=== PATIENT | female | born 1995 | race Caucasian/White ===

== ENCOUNTER → 2024-05-19 16:41 | Outpatient (CLI) | payer OTHER, SELFPAY ==
[2024-05-19 18:13] LABS: HCG Quantitative /Beta subunit 15191 mIU/mL
== END ==
PROVIDERS: Referring Provider Obstetrics & Gynecology; Visit Provider Obstetrics & Gynecology
DX: Z34.00 Encounter for supervision of normal first pregnancy, unspecified trimester (principal); N91.2 Amenorrhea, unspecified
CPT/HCPCS: 36415; 84702

== ENCOUNTER → 2024-06-02 08:37 | Outpatient (CLI) | payer OTHER, SELFPAY ==
[2024-06-02 15:05] LABS: Urine N gonorrhoeae NOT DETECTED
[2024-06-02 15:11] LABS: Urine Chlamydia NOT DETECTED
== END ==
PROVIDERS: Visit Provider Obstetrics & Gynecology
DX: Z34.01 Encounter for supervision of normal first pregnancy, first trimester (principal); Z3A.08 8 weeks gestation of pregnancy
CPT/HCPCS: 87491; 87591

== ENCOUNTER → 2024-06-15 15:13 | Outpatient (CLI) | payer OTHER, SELFPAY ==
[2024-06-15 16:34] LABS: Natera Collection Specimen Collected
[2024-06-15 16:49] LABS: Add Manual Diff / Slide Review NO; Basophils Absolute Auto 0 /uL (0-100); Basophils Percent Auto 0.3 % (0-2); Eosinophils Absolute Auto 0 /uL (0-450); Eosinophils Percent Auto 0.4 % (2-4); Hematocrit 40.5 % (36-46); Hemoglobin 13.6 g/dL (12.0-16.0); Lymphocytes Absolute Auto 1300 /uL (1100-4500); Lymphocytes Percent Auto 13.6 % (25-40); Mean Corpuscular HGB Conc 33.6 % (30-36); Mean Corpuscular Hemoglobin 29.7 PG (26-34); Mean Corpuscular Volume 88.6 fL (80-100); Monocytes Absolute Auto 600 /uL (0-900); Monocytes Percent Auto 5.8 % (3-14); Neutrophils Absolute Auto 7600 /uL (1500-7000); Neutrophils Percent Auto 79.9 % (50-75); Platelet Count 235 X10^3/uL (150-400); Red Blood Cell Count 4.58 X10^6/uL (4.0-5.2); White Blood Cell Count 9.5 X10^3/uL (4.5-11.0)
[2024-06-15 17:56] LABS: Rubella Antibody IgG 36.9 IU/mL (>15)
[2024-06-15 17:59] LABS: HCG Quantitative /Beta subunit 74763 mIU/mL
[2024-06-15 18:05] LABS: Hepatitis B Surface Antigen NEGATIVE s/c (NEGATIVE)
[2024-06-15 18:13] LABS: HIV 1 & 2 Ab/Ag 4th Gen Combo NEGATIVE (NEGATIVE)
[2024-06-15 18:21] LABS: Hep C Virus Ab w/Reflex Quant NEGATIVE s/c (NEGATIVE)
[2024-06-16 08:08] LABS: RPR Screen Non Reactive (Non Reactive)
[2024-06-16 13:11] LABS: Varicella IgG Antibody Reactive (Non Reactive)
== END ==
LOC: LAB 15:14
PROVIDERS: Referring Provider Obstetrics & Gynecology; Visit Provider Obstetrics & Gynecology
DX: Z34.01 Encounter for supervision of normal first pregnancy, first trimester (principal); N91.2 Amenorrhea, unspecified; Z3A.10 10 weeks gestation of pregnancy
CPT/HCPCS: 80055; 84702; 86787; 86803; 86850; 86900; 86901; 87086; 87389

== ENCOUNTER → 2024-06-18 13:17 | Outpatient (CLI) | payer OTHER, SELFPAY ==
[2024-06-18 14:28] LABS: Appearance Urine UA CLEAR; Bilirubin Urine UA NEGATIVE (NEGATIVE); Color Urine UA YELLOW; Glucose Urine UA NEGATIVE (Negative); Ketones Urine UA NEGATIVE (NEGATIVE); Leukocyte Esterase Urine UA NEGATIVE (NEGATIVE); Nitrite Urine UA NEGATIVE (Negative); Occult Blood Urine UA NEGATIVE (Negative); Protein Urine UA NEGATIVE (Negative); Urobilinogen Urine UA 0.2 E.U./dL (0.2)
[2024-06-18 14:30] LABS: pH Urine UA 6.5 (4.5-8.0)
[2024-06-18 14:48] LABS: Bacteria Urine Few (2-10); RBC Urine None Seen (0-5/HPF); Squamous Epithelial Cell Urine 1-5 /HPF (0-5/HPF); Urine Volume 10mL (spun); WBC Urine None Seen (0-5/HPF)
[2024-06-18 14:49] LABS: Culture Indicated Urine Cult Not Indicated
== END ==
PROVIDERS: Referring Provider Obstetrics & Gynecology; Visit Provider Obstetrics & Gynecology
DX: Z34.00 Encounter for supervision of normal first pregnancy, unspecified trimester (principal); R30.0 Dysuria
CPT/HCPCS: 81001

== ENCOUNTER → 2024-08-24 14:57 | Outpatient (CLI) | payer OTHER, SELFPAY ==
--- NOTE | 2024-08-24 14:58 | DI.US.S_ITS ---
PROCEDURE: US OB >= 14 WEEKS FETUS INDICATIONS: 20 week anatomy OUTSIDE/PRIOR DATING DATA: Last menstrual period (LMP): 04/06/24. LMP-based estimated date of delivery (JONATHON): 01/11/25. First dating scan (date and location): 06/02/24. Estimated date of delivery (JONATHON) from first dating scan: 01/12/25. The calculations are made using the working JONATHON of 01/11/25. TECHNIQUE: Real-time scanning was performed of the fetus, with image documentation and biometric measurements. Endovaginal scanning: Not performed COMPARISON: None. FINDINGS: General: A single living intrauterine gestation is present. Presentation: Breech. Placenta: Placental position is posterior , without previa. Amniotic fluid index: 19.9 cm, normal range is 5-24 cm. Single deepest vertical pocket is 6.8 cm. heart rate: 143 beats per minute. Maternal cervical canal: Closed and 3.6 cm long. Normal lower limit is 2.5 cm. biometrics: Biparietal diameter: 4.8 cm, 20 weeks three days Head circumference: 18.0 cm, 20 weeks three days Abdominal circumference: 16.7 cm, 21 weeks five days Femur length: 3.6 cm, 21 weeks two days Clinically estimated gestational age: 20 weeks 0 days Composite gestational age from present scan: 21 weeks 0 days Estimated weight and percentile: 416 g, 98th percentile Anatomic survey: Neuro: Ventricles are non-dilated at less than 10 mm. Cisterna magna is normal at 3-11 mm. Cerebellum is normal in size and morphology. Nuchal skin fold: Normal at less than 6 mm between 14-21 weeks gestational age. Face: Nose and lips, facial profile are normal. Spine: Not well seen Heart: 4-chambered heart is present, with normal ventricular outflow tracts. Diaphragm: Diaphragm is intact. Stomach: Left-sided stomach is present. Kidneys: No hydronephrosis. Normal is less than 5 mm in 2nd trimester, less than 7 mm in 3rd trimester. Cord: 3-vessel cord has orthotopic insertion. Placental cord insertion was not well seen. Bladder: Normal in size. Extremities: All 4 extremities identified. IMPRESSION: Single living intrauterine with estimated weight at the 98th percentile. Composite gestational age is seven days greater than the working gestational age. Due to lie, sagittal views the spine were not well seen. Placental cord insertion was also not seen. Follow-up is recommended. Otherwise normal anatomy. Closed cervix and normal amniotic fluid volume. Posterior placenta. We strive to produce accurate, complete, and clear reports of imaging services. To assist us in improving patient care, this report was composed using standard report templates and voice recognition software. Therefore, it may contain abnormal punctuation, insertions and/or omissions. Occasional wrong-word or sound-alike substitutions may occur. Though we review the report and make efforts to correct it, we do recommend that the report be read carefully in proper context to recognize any text inaccuracies. Dictated by: Debra Lehman M.D. on 08/25/2024 at 11:02 Approved by: Debra Lehman M.D. on 08/25/2024 at 11:06
== END ==
PROVIDERS: Referring Provider Obstetrics & Gynecology; Visit Provider Obstetrics & Gynecology
DX: Z34.02 Encounter for supervision of normal first pregnancy, second trimester (principal); Z3A.21 21 weeks gestation of pregnancy
CPT/HCPCS: 76811

== ENCOUNTER → 2024-08-28 08:19 | Outpatient (CLI) | payer OTHER, SELFPAY | PROVIDERS: Referring Provider Obstetrics & Gynecology; Visit Provider Obstetrics & Gynecology | DX: Z34.00 Encounter for supervision of normal first pregnancy, unspecified trimester (principal); Z3A.16 16 weeks gestation of pregnancy | CPT/HCPCS: 36415; 82105 ==

== ENCOUNTER → 2024-09-28 06:59 | Outpatient (CLI) | payer OTHER, SELFPAY ==
[2024-09-28 08:35] LABS: Hematocrit 35.8 % (36-46); Hemoglobin 12.4 g/dL (12.0-16.0)
[2024-09-28 08:49] LABS: GTT (PREG) 1 Hour PP 50gm Dose 97 mg/dL (76-139)
== END ==
PROVIDERS: Referring Provider Obstetrics & Gynecology; Visit Provider Obstetrics & Gynecology
DX: Z34.02 Encounter for supervision of normal first pregnancy, second trimester (principal); Z3A.26 26 weeks gestation of pregnancy
CPT/HCPCS: 36415; 82950; 85014; 85018

== ENCOUNTER 2024-10-21 13:25 | Observation (INO) | payer OTHER, SELFPAY ==
[2024-10-21 14:22] LABS: Add Manual Diff / Slide Review NO; Basophils Absolute Auto 0 /uL (0-100); Basophils Percent Auto 0.4 % (0-2); Eosinophils Absolute Auto 100 /uL (0-450); Eosinophils Percent Auto 0.5 % (2-4); Hematocrit 35.8 % (36-46); Lymphocytes Absolute Auto 1200 /uL (1100-4500); Lymphocytes Percent Auto 10.7 % (25-40); Mean Corpuscular HGB Conc 33.5 % (30-36); Mean Corpuscular Hemoglobin 30.5 PG (26-34); Mean Corpuscular Volume 91.1 fL (80-100); Monocytes Absolute Auto 800 /uL (0-900); Monocytes Percent Auto 7.4 % (3-14); Neutrophils Absolute Auto 9200 /uL (1500-7000); Platelet Count 206 X10^3/uL (150-400); Red Blood Cell Count 3.93 X10^6/uL (4.0-5.2); Red Cell Distribution Width 12.4 % (11.6-14.8); White Blood Cell Count 11.3 X10^3/uL (4.5-11.0)
[2024-10-21 14:35] LABS: Alanine Aminotransferase 76 IU/L (<35); Albumin 3.8 g/dL (3.5-5.0); Albumin Globulin Ratio 1.3 (1.0-2.8); Alkaline Phosphatase 91 U/L (38-126); Aspartate Aminotransferase 43 IU/L (14-36); BUN Creatinine Ratio 12.7 (6-22); Bilirubin Total 0.3 mg/dL (0.2-1.3); Blood Urea Nitrogen 8 mg/dL (7-17); Calcium 8.9 mg/dL (8.4-10.2); Carbon Dioxide 23 mmol/L (22-32); Chloride 105 mmol/L (98-107); Estimated Glomerular Filt Rate > 60 mL/min (>60); Glucose 76 mg/dL (70-99); HEMOLYSIS < 15 (0-50); Potassium 4.1 mmol/L (3.4-5.1); Sodium 134 mmol/L (137-145); Total Protein 6.8 g/dL (6.3-8.2); Uric Acid 3.5 mg/dL (2.5-6.2)
[2024-10-21 15:14] LABS: Creatinine Urine Random 51.61 mg/dL
[2024-10-21 15:28] LABS: Protein (Total) Urine Random 13 mg/dL (0-12); Protein Creatinine Ratio Urine 0.25 GRAM/24H
--- NOTE | 2024-10-21 16:30 | P.TNLD_ITS ---
Visit Information Visit Information Date of evaluation: 10/21/24 Primary OB Provider: Eliane Malhotra On-call OB Provider: Eliane Malhotra Reason for Evaluation: Yes non-stress test and Yes other Comments/Additional reasons for admission: new malaise, fatigue, elevated BP at home [facility] Medical History (Updated 01/11/25 @ 13:34 by Nelli Dennison DO) depression exam Pre-eclampsia in third trimester Foot fracture (~2017) Surgical History (Updated 05/13/24 @ 10:37 by Melva Wong RN) [place] teeth removed (07/18/16) Anesthesia History of Achilles tendon repair (~2014) Family History (Updated 05/13/24 @ 10:43 by Melva Wong RN) Father Age: 63 Diabetes mellitus Hypertension Mother Age: 60 Mental health problem Brother Mental health problem Cystic fibrosis Substance abuse Sister Age: 32 Pre-eclampsia, severe hemorrhage Family/Other Pneumothorax, spontaneous, tension Cerebral palsy Prematurity Family/Other HIDS (hyperimmunoglobulinemia D with recurrent fever syndrome) Monoallelic mutation of MVK gene Grandmother Diabetes mellitus Von Willebrand disease Social History marital status: number of children: 0 household members: spouse and children lives independently: Yes caregiver/support person: No housing: house pets and animals: Yes (dog) education level: college occupational status: employed current occupational exposures/hazards: No special jose elias needs: No travel history: recent seatbelt use: always helmet use: Yes working smoke detector in home: Yes fire extinguisher in home: Yes carbon monox detector in home: Yes firearms in home: Yes firearms unloaded and locked: Yes do you feel safe at home: Yes second hand exposure: No alcohol intake: former substance use type: does not use during the past year weight has: increased > 10 lbs well-balanced diet: daily or most days daily servings fruits/ve or more times/day caffeine: Yes (aware of 200mg limit; previously 400+mg/day prior to ) Type(s) of exercise: aerobic, bicycling, swimming and weight lifting frequency: daily additional social history: 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 Discussed general exercise recommendations in , travel precautions. Pt does have several trips planned in the next few months, including [place] and , travel recommendations reviewed including compression socks, frequent ambulation, LDASA after 12 wk. Exam Vital Signs (past 8 hours): maternal VSS/afebrile, normotensive without mild or severe range BP; reviewed in OBIX Objective Labs 10/21/24 13:50 10/21/24 13:50 Labs: Laboratory Results - last 24 hr 10/21/24 10/21/24 13:30 13:50 WBC 11.3 H RBC 3.93 L Hgb 12.0 Hct 35.8 L MCV 91.1 MCH 30.5 MCHC 33.5 RDW 12.4 Plt Count 206 Neut % (Auto) 81.0 H Lymph % (Auto) 10.7 L [place] % (Auto) 7.4 Eos % (Auto) 0.5 L Baso % (Auto) 0.4 Neut # (Auto) 9200 H Lymph # (Auto) 1200 [place] # (Auto) 800 Eos # (Auto) 100 Baso # (Auto) 0 Sodium 134 L Potassium 4.1 Chloride 105 Carbon Dioxide 23 BUN 8 Creatinine 0.63 Estimated GFR > 60 BUN/Creatinine Ratio 12.7 Glucose 76 Uric Acid 3.5 Calcium 8.9 Total Bilirubin 0.3 AST 43 H ALT 76 H Alkaline Phosphatase 91 Total Protein 6.8 Albumin 3.8 Globulin 3.0 Albumin/Globulin Ratio 1.3 U Random Total Protein 13 H Urine Creatinine 51.61 Protein/Creatinin Ratio 0.25 Evaluation Evaluation Baseline heart rate: 140 Variability: Moderate (11-25) monitor accelerations: Present Monitor Decelerations: Absent Category of Tracing: Reactive Status: Category l Diagnosis, Plan/Disposition Plan/Disposition Plan: normotensive, mild elevation in LFTs without additional lab abnormality strict precautions plan interval NST/labs one week unless sooner indication OB Disposition: home
== END 2024-10-21 16:30 | disposition home or self-care (01) ==
PROVIDERS: Admitting Provider Obstetrics & Gynecology; Referring Provider Obstetrics & Gynecology; Visit Provider Obstetrics & Gynecology
DX: Z36.9 Encounter for antenatal screening, unspecified (principal)
CPT/HCPCS: 36415; 59025; 80053; 84550; 85025; G0378; G0379

== ENCOUNTER 2024-10-22 18:40 | Observation (INO) | payer OTHER, SELFPAY ==
[2024-10-22 19:52] LABS: Add Manual Diff / Slide Review NO; Basophils Absolute Auto 0 /uL (0-100); Basophils Percent Auto 0.4 % (0-2); Eosinophils Absolute Auto 0 /uL (0-450); Eosinophils Percent Auto 0.4 % (2-4); Hematocrit 35.4 % (36-46); Lymphocytes Absolute Auto 1500 /uL (1100-4500); Lymphocytes Percent Auto 13.7 % (25-40); Mean Corpuscular HGB Conc 33.9 % (30-36); Mean Corpuscular Hemoglobin 30.8 PG (26-34); Mean Corpuscular Volume 90.9 fL (80-100); Monocytes Absolute Auto 800 /uL (0-900); Monocytes Percent Auto 7.3 % (3-14); Neutrophils Absolute Auto 8600 /uL (1500-7000); Neutrophils Percent Auto 78.2 % (50-75); Platelet Count 198 X10^3/uL (150-400); Red Cell Distribution Width 12.5 % (11.6-14.8); White Blood Cell Count 10.9 X10^3/uL (4.5-11.0)
[2024-10-22 19:58] LABS: Alanine Aminotransferase 63 IU/L (<35); Albumin 3.6 g/dL (3.5-5.0); Albumin Globulin Ratio 1.3 (1.0-2.8); Alkaline Phosphatase 82 U/L (38-126); Aspartate Aminotransferase 36 IU/L (14-36); BUN Creatinine Ratio 12.5 (6-22); Bilirubin Total 0.1 mg/dL (0.2-1.3); Blood Urea Nitrogen 7 mg/dL (7-17); Calcium 8.6 mg/dL (8.4-10.2); Carbon Dioxide 24 mmol/L (22-32); Chloride 105 mmol/L (98-107); Estimated Glomerular Filt Rate > 60 mL/min (>60); Globulin 2.8 g/dL (1.7-4.1); Glucose 92 mg/dL (70-99); HEMOLYSIS < 15 (0-50); Potassium 3.6 mmol/L (3.4-5.1); Sodium 135 mmol/L (137-145); Total Protein 6.4 g/dL (6.3-8.2); Uric Acid 3.1 mg/dL (2.5-6.2)
[2024-10-22 20:29] LABS: Creatinine Urine Random 21.77 mg/dL; Protein (Total) Urine Random 13 mg/dL (0-12); Protein Creatinine Ratio Urine 0.59 GRAM/24H
--- NOTE | 2024-10-22 21:19 | P.HPOB_ITS ---
OB HPI Date/Time Date of admission: 10/22/24 Date Patient Seen: 10/22/24 Time Patient Seen: 21:20 History of Present Condition Chief complaint: blood pressure issues JONATHON Calculator 2 Estimated Delivery Date Method Current WG Current Estimate 01/11/25 LMP (Certain) 28w 3d Other Estimates 01/12/25 Ultrasound #1 28w 2d Estimated Gestational Age (weeks): 28w3d : 1 Narrative: 29 yo G1 presenting with vision changes, BENITES, nausea, elevated BPs and general malaise. She was seen yesterday in triage for similar symptoms and evaluation showed elevated LFTs but normal urine P:C ratio. Blood pressures were normal to mild range at that time and she was discharged home with plans for close follow- up. Today she is felt that symptoms have worsened and has now developed orbs of visual disturbances. She is also more nauseous. Blood pressures at home have been ranging from low 100s to 130s systolic. On arrival, blood pressures in 130/80 range. Preeclampsia labs ordered. Labs showed improvement in LFT elevations (nml AST with elevated but improved ALT) but new development of elevated urine protein creatinine ratio now up to 0.59 up from 0.25 yesterday evening. Platelets are essentially stable from labs yesterday. Creatinine is also stable from yesterday. Patient is still feeling a mild nagging headache and is still experiencing visual changes. Nausea still present but manageable. Overall she is feeling generally unwell and uncomfortable. On evaluation, blood pressures ranging from 103-135 / 54-80 while awaiting labs. care: good care Dating criteria OB: LMP confirmed by 1st trimester US Preadmission Labs Last OB Lab Results: 2 Blood Type B Positive 06/15/24 15:34 Antibody Screen Negative 06/15/24 15:34 Hct 35.4 % (36-46) L 10/22/24 19:17 Hgb 12.0 g/dL (12.0-16.0) 10/22/24 19:17 Hep Bs Antigen Negative s/c (NEGATIVE) 06/15/24 15:34 Hepatitis C Antibody Negative s/c (NEGATIVE) 06/15/24 15:34 Rubella Antibody 36.9 IU/mL (>15) 06/15/24 15:34 VZV IgG Antibody Reactive (Non Reactive) 06/15/24 15:34 Glucose 1 Hr 50 gm 97 mg/dL (76-139) 09/28/24 08:22 Evaluation Evaluation Baseline heart rate: 135 Variability: Moderate (11-25) monitor accelerations: Present Monitor Decelerations: Absent Contraction Frequency (minutes): 0 Category of Tracing: Reactive PFSH Medical History (Updated 05/13/24 @ 10:37 by Melva Wong RN) Foot fracture (~2017) Surgical History (Updated 05/13/24 @ 10:37 by Melva Wong RN) [place] teeth removed (07/18/16) Anesthesia History of Achilles tendon repair (~2014) Family History (Updated 05/13/24 @ 10:43 by Melva Wong RN) Father Age: 62 Diabetes mellitus Hypertension Mother Age: 60 Mental health problem Brother Mental health problem Cystic fibrosis Substance abuse Sister Age: 31 Pre-eclampsia, severe hemorrhage Family/Other Pneumothorax, spontaneous, tension Cerebral palsy Prematurity Family/Other HIDS (hyperimmunoglobulinemia D with recurrent fever syndrome) Monoallelic mutation of MVK gene Grandmother Diabetes mellitus Von Willebrand disease Social History marital status: number of children: 0 household members: spouse lives independently: Yes caregiver/support person: No housing: house pets and animals: Yes (dog) education level: college (bachelor's degree) occupational status: employed () current occupational exposures/hazards: No special jose elias needs: No travel history: recent (, [place]) seatbelt use: always helmet use: Yes working smoke detector in home: Yes fire extinguisher in home: Yes carbon monox detector in home: Yes firearms in home: Yes firearms unloaded and locked: Yes do you feel safe at home: Yes second hand exposure: No alcohol intake: former (very rarely when not ) substance use type: does not use during the past year weight has: increased > 10 lbs (muscle weight, very physically active) well-balanced diet: daily or most days daily servings fruits/ve or more times/day caffeine: Yes (aware of 200mg limit; previously 400+mg/day prior to ) Type(s) of exercise: aerobic, bicycling, swimming and weight lifting frequency: daily additional social history: 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 Discussed general exercise recommendations in , travel precautions. Pt does have several trips planned in the next few months, including [place] and [place], travel recommendations reviewed including compression socks, frequent ambulation, LDASA after 12 wk. Meds Home Medications and Allergies Home Medications Medication Instructions Recorded Confirmed Type vitamin-ferrous sulfate See Rx Instructions .Route .COMPLEX 05/13/24 10/21/24 History 27 mg iron-folic acid 0.8 mg tablet doxylamine succinate 25 mg tablet 25 mg PO BEDTIME PRN md order 06/02/24 10/21/24 History (Unisom (doxylamine)) pyridoxine (vitamin B6) 100 mg 100 mg PO DAILY 06/02/24 10/21/24 History tablet Allergies Allergy/AdvReac Type Severity Reaction Status Date / Time Penicillins Allergy Mild Rash Verified 09/25/24 14:46 OB Exam Vital signs Blood Pressure: 122/68 Pulse Rate: 83 Temperature: 97.7 F Narrative Exam Narrative: Blood pressure from arrival: 133/82, 136/80, 133/81, 122/68, 119/65, 121/69, 103/54, 145/82 GEN: Healthy appearing, well-developed, NAD. PSYCH: Good Judgment. AOx3. Normal memory, mood, and affect HEENT: -Head: NC/AT -Eyes: No discharge or redness CV: warm and well perfused LUNGS: breathing comfortably on RA ABD: gravid SKIN: Warm, well perfused. No skin rashes or abnormal lesions MSK: No deformities NEURO: Ambulating with no limitations. No focal deficits Objective Labs 10/22/24 19:17 10/22/24 19:17 Labs: Laboratory Results - last 24 hr 10/22/24 19:17 WBC 10.9 RBC 3.90 L Hgb 12.0 Hct 35.4 L MCV 90.9 MCH 30.8 MCHC 33.9 RDW 12.5 Plt Count 198 Neut % (Auto) 78.2 H Lymph % (Auto) 13.7 L [place] % (Auto) 7.3 Eos % (Auto) 0.4 L Baso % (Auto) 0.4 Neut # (Auto) 8600 H Lymph # (Auto) 1500 [place] # (Auto) 800 Eos # (Auto) 0 Baso # (Auto) 0 Sodium 135 L Potassium 3.6 Chloride 105 Carbon Dioxide 24 BUN 7 Creatinine 0.56 Estimated GFR > 60 BUN/Creatinine Ratio 12.5 Glucose 92 Uric Acid 3.1 Calcium 8.6 Total Bilirubin 0.1 L AST 36 ALT 63 H Alkaline Phosphatase 82 Total Protein 6.4 Albumin 3.6 Globulin 2.8 Albumin/Globulin Ratio 1.3 U Random Total Protein 13 H Urine Creatinine 21.77 Protein/Creatinin Ratio 0.59 Assessment and Plan Assessment and Plan Assessment and Plan narrative: 29 yo G1 presenting with vision changes, BENITES, nausea, elevated BPs and general malaise. ON arrival Urine PC found to be elevated to 0.59 up from 0.25 yesterday evening. Bps mostly normotensive but with one recent read in 140s/80 range. # elevated urine PC, concern for Pre-E: - [facility], observation - 24 hour urine protein collection - BP q2hr when normotensive, q15min when elevated - IV labetolol available for severe range BPs - NST q4hrs - If Bps consistently elevated overnight, will start antihypertensives in the AM - PRN Zofran for nausea - PRN vistaril for insomnia/anxiety - Repeat CMP and CBC in the AM Time-Based Coding :: [TOTAL MINUTES] spent with patient and on the chart (including review of chart, obtaining history, exam, reviewing outside data, placing orders, documenting exam and treatment plan, and counseling patient) on [DATE].
[2024-10-22 21:36] VITALS: BP 122/68; PULSE 83; TEMP 36.5
[2024-10-23] MEDS: ONDANSETRON 4 MG ODT SL (03:40)
--- NOTE | 2024-10-23 08:00 | P.DS_ITS ---
Discharge Providers Provider Date of admission: 10/22/24 18:40 Discharge Date: 10/23/24 Primary care physician: Yodit VILA Provider Discharge provider: Eliane Malhotra MD Summary Hospital Course Date Patient Seen: 10/23/24 Time Patient Seen: 07:30 Diagnoses: antepartum observation for labile blood pressure at 28wga, proteinuria Hospital Course: 29yo G1 at 28w4d admitted for overnight observation in setting of non-sustained mild range BP, BENITES with associated vision changes. Patient had been seen and evaluated in [facility] earlier this week for concerns of elevated BP at home (140s/80s) with associated BENITES and RUQ discomfort. First PIH labs 10/21 without thrombocytopenia, mild transaminitis (AST 43/ALT 76), Pr/Cr 0.25. Patient was discharged to home from this initial encounter with strict precautions and planned short interval f/u in office. Patient secondarily developed recurrent BENITES with associated vision changes, called MD on-call and was instructed to present for further evaluation. Current observation period notable for non-sustained mild range BP (initially 140s/80s on arrival, normotensive throughout overnight observation), repeat PIH labs with interval improvement in transaminitis (AST 36/63), mild decrease in platelets (206 --> 198k) however doubling of Pr/Cr to 0.56. A 24h urine collection was started and patient admitted for overnight observation. Patient remained normotensive throughout observation period with noted improvement in BENITES and vision changes. In shared decision making model to facilitate patient sleep patient discharged to home this AM with planned re-start of 24h urine collection, return to facility AM 10/24 for interval NST with PIH labs and further care coordination at that time pending results of same. Strict interval precautions reviewed and patient in agreement with plan of care. REassuring surveillance throughout observation. Status at Discharge Cognitive/behavioral status at discharge: oriented Functional status at discharge: independent ambulation Overall status at discharge: patient is back to baseline Time Spent with Patient Time attestation: Total time spent providing and/or coordinating discharge services: Objective Labs 10/22/24 19:17 10/22/24 19:17 Labs: Laboratory Results - last 24 hr 10/22/24 19:17 WBC 10.9 RBC 3.90 L Hgb 12.0 Hct 35.4 L MCV 90.9 MCH 30.8 MCHC 33.9 RDW 12.5 Plt Count 198 Neut % (Auto) 78.2 H Lymph % (Auto) 13.7 L [place] % (Auto) 7.3 Eos % (Auto) 0.4 L Baso % (Auto) 0.4 Neut # (Auto) 8600 H Lymph # (Auto) 1500 [place] # (Auto) 800 Eos # (Auto) 0 Baso # (Auto) 0 Sodium 135 L Potassium 3.6 Chloride 105 Carbon Dioxide 24 BUN 7 Creatinine 0.56 Estimated GFR > 60 BUN/Creatinine Ratio 12.5 Glucose 92 Uric Acid 3.1 Calcium 8.6 Total Bilirubin 0.1 L AST 36 ALT 63 H Alkaline Phosphatase 82 Total Protein 6.4 Albumin 3.6 Globulin 2.8 Albumin/Globulin Ratio 1.3 U Random Total Protein 13 H Urine Creatinine 21.77 Protein/Creatinin Ratio 0.59 Exam Vital Signs (past 8 hours): BP 116-141/68-77 afebrile, non-tachycardic see OBIX Const General: cooperative, healthy appearing, comfortable and well developed Nutritional Appearance: average body habitus Orientation: alert, awake and oriented x3 Limitations: mental status not altered HENMT Head: normal to inspection and other (no facial plethora ) Resp Effort & Inspection: normal respiratory effort and able to speak in complete sentences Auscultation: clear to auscultation bilaterally Cardio Pulses: normal peripheral pulses GI Palpation: soft Other: gravid, size c/w dates Other: deferred Skin General: no rashes or lesions noted Neuro General: patient alert, patient awake and patient oriented x3 Other: +2 DTR Extrem General: normal to inspection, no pedal edema and no calf tenderness Psych Mental Status: mental status grossly normal Judgment: judgment good Discharge Plan Discharge Plan Patient Disposition: Home Provider Discharge Comment: Notify provider with any worsening headache, vision changes, abdominal pain, vaginal bleeding, decrease in movement, cramping/contractions Discharge orders & Medications Prescriptions: Continued Unisom (doxylamine) 25 mg tablet 25 mg PO BEDTIME PRN (Reason: md order) pyridoxine (vitamin B6) 100 mg tablet 100 mg PO DAILY vit-ferrous sulfat-FA 27 mg iron- 0.8 mg tablet See Rx Instructions .ROUTE .COMPLEX Rx Instructions: per MD order Follow up/Referrals: ProviderYodit [Primary Care Provider] - Diet/Activity/Treatments Diet: Diet as Tolerated and Regular Skin/Wound/Dressing Care Report to your healthcare provider any signs of infection, such as:: increased pain Visit Report/Discharge Packet Stand Alone Forms: Patient Portal/API, Stroke Signs & Symptoms Discharge Data Primary Care Provider: Yodit Ascencio Attending Provider: Bella Perdomo Admit Date/Time: 10/22/24 18:40
[2024-10-23] MEDS: FAMOTIDINE 20 MG TABLET PO (08:29)
[2024-10-24 12:49] LABS: Collection Time Urine 24 Hours; Protein (Total) Urine Random 13 mg/dL (0-12); Total Protein 24 Hour Urine 416 mg/day (42-225); Total Volume Urine 3200 mL
== END 2024-10-23 08:32 | disposition home or self-care (01) ==
PROVIDERS: Admitting Provider Family Medicine; Referring Provider Family Medicine; Visit Provider Family Medicine
DX: Z36.9 Encounter for antenatal screening, unspecified (principal)
CPT/HCPCS: 59025; 59050; 80053; 84156; 84550; 85025; G0378; A9270; G0379

== ENCOUNTER 2024-10-24 09:35 | Observation (INO) | payer OTHER, SELFPAY ==
[2024-10-24 10:57] LABS: Add Manual Diff / Slide Review NO; Basophils Absolute Auto 0 /uL (0-100); Basophils Percent Auto 0.3 % (0-2); Eosinophils Absolute Auto 0 /uL (0-450); Eosinophils Percent Auto 0.3 % (2-4); Hemoglobin 12.1 g/dL (12.0-16.0); Lymphocytes Absolute Auto 1100 /uL (1100-4500); Lymphocytes Percent Auto 9.4 % (25-40); Mean Corpuscular HGB Conc 34.6 % (30-36); Mean Corpuscular Hemoglobin 31.1 PG (26-34); Mean Corpuscular Volume 89.9 fL (80-100); Monocytes Absolute Auto 600 /uL (0-900); Monocytes Percent Auto 5.2 % (3-14); Neutrophils Absolute Auto 10200 /uL (1500-7000); Neutrophils Percent Auto 84.8 % (50-75); Platelet Count 195 X10^3/uL (150-400); Red Cell Distribution Width 12.5 % (11.6-14.8)
[2024-10-24 11:17] LABS: Alanine Aminotransferase 51 IU/L (<35); Albumin 3.6 g/dL (3.5-5.0); Albumin Globulin Ratio 1.3 (1.0-2.8); Alkaline Phosphatase 91 U/L (38-126); Aspartate Aminotransferase 31 IU/L (14-36); Bilirubin Total 0.2 mg/dL (0.2-1.3); Blood Urea Nitrogen 8 mg/dL (7-17); Calcium 9.2 mg/dL (8.4-10.2); Carbon Dioxide 18 mmol/L (22-32); Chloride 108 mmol/L (98-107); Estimated Glomerular Filt Rate > 60 mL/min (>60); Globulin 2.8 g/dL (1.7-4.1); Glucose 114 mg/dL (70-99); HEMOLYSIS < 15 (0-50); Potassium 3.3 mmol/L (3.4-5.1); Sodium 136 mmol/L (137-145); Total Protein 6.4 g/dL (6.3-8.2)
--- NOTE | 2024-10-24 12:19 | PM.OBTRLD ---
Visit Information Visit Information Date of evaluation: 10/24/24 Primary OB Provider: Eliane Malhotra On-call OB Provider: Mahogany Fitch Reason for Evaluation: Yes non-stress test Comments/Additional reasons for admission: return of 24h urine protein interval [facility] labs, BP monitoring Vital Signs Vital Signs: 160s/80s (immediately upon arrival) --> 140s/80s (10min rest) --> 110s/70s (time of MD evaluation) [facility] Medical History (Updated 05/13/24 @ 10:37 by Melva Wnog RN) Foot fracture (~2017) Surgical History (Updated 05/13/24 @ 10:37 by Melva Wong RN) [place] teeth removed (07/18/16) Anesthesia History of Achilles tendon repair (~2014) Family History (Updated 05/13/24 @ 10:43 by Melva Wong RN) Father Age: 62 Diabetes mellitus Hypertension Mother Age: 60 Mental health problem Brother Mental health problem Cystic fibrosis Substance abuse Sister Age: 31 Pre-eclampsia, severe hemorrhage Family/Other Pneumothorax, spontaneous, tension Cerebral palsy Prematurity Family/Other HIDS (hyperimmunoglobulinemia D with recurrent fever syndrome) Monoallelic mutation of MVK gene Grandmother Diabetes mellitus Von Willebrand disease Social History marital status: number of children: 0 household members: spouse lives independently: Yes caregiver/support person: No housing: house pets and animals: Yes (dog) education level: college (bachelor's degree) occupational status: employed () current occupational exposures/hazards: No special jose elias needs: No travel history: recent ([place], [place]) seatbelt use: always helmet use: Yes working smoke detector in home: Yes fire extinguisher in home: Yes carbon monox detector in home: Yes firearms in home: Yes firearms unloaded and locked: Yes do you feel safe at home: Yes second hand exposure: No alcohol intake: former (very rarely when not ) substance use type: does not use during the past year weight has: increased > 10 lbs (muscle weight, very physically active) well-balanced diet: daily or most days daily servings fruits/ve or more times/day caffeine: Yes (aware of 200mg limit; previously 400+mg/day prior to ) Type(s) of exercise: aerobic, bicycling, swimming and weight lifting frequency: daily additional social history: 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 Discussed general exercise recommendations in , travel precautions. Pt does have several trips planned in the next few months, including [place] and , travel recommendations reviewed including compression socks, frequent ambulation, LDASA after 12 wk. Review of Systems Review of Systems ROS: Yes All systems reviewed with the patient and are negative except as otherwise documented Exam Const General: cooperative, healthy appearing and comfortable Nutritional Appearance: average body habitus Orientation: alert, awake and oriented x3 Limitations: mental status not altered HENMT Face and sinus: normal facial exam Resp Effort & Inspection: normal respiratory effort and able to speak in complete sentences Cardio Pulses: normal peripheral pulses Other: deferred Skin General: no rashes or lesions noted Neuro General: patient alert, patient awake and patient oriented x3 Other: +2 DTR, no hyper-reflexia Extrem General: normal to inspection and no pedal edema Psych Mental Status: mental status grossly normal Judgment: judgment good Objective Labs 10/24/24 10:35 10/24/24 10:35 Labs: Laboratory Results - last 24 hr 10/24/24 10:35 WBC 12.0 H RBC 3.90 L Hgb 12.1 Hct 35.0 L MCV 89.9 MCH 31.1 MCHC 34.6 RDW 12.5 Plt Count 195 Neut % (Auto) 84.8 H Lymph % (Auto) 9.4 L [place] % (Auto) 5.2 Eos % (Auto) 0.3 L Baso % (Auto) 0.3 Neut # (Auto) 84373 H Lymph # (Auto) 1100 [place] # (Auto) 600 Eos # (Auto) 0 Baso # (Auto) 0 Sodium 136 L Potassium 3.3 L Chloride 108 H Carbon Dioxide 18 L BUN 8 Creatinine 0.47 L Estimated GFR > 60 BUN/Creatinine Ratio 17.0 Glucose 114 H Calcium 9.2 Total Bilirubin 0.2 AST 31 ALT 51 H Alkaline Phosphatase 91 Total Protein 6.4 Albumin 3.6 Globulin 2.8 Albumin/Globulin Ratio 1.3 Diagnosis, Plan/Disposition Plan/Disposition Plan: persistent labile BP without sustained mild or severe range value interval improvement in BENITES, complete resolution of visual symptoms PIH labs stable, transaminitis resolving anticipate r/in for preE without severe features per proteinuria strict precautions reviewed, plan interval f/u 10/27, repeat PIH labs with NST at that time OB Disposition: home
== END 2024-10-24 12:14 | disposition home or self-care (01) ==
LOC: LABOR 09:38
PROVIDERS: Admitting Provider Obstetrics & Gynecology; Referring Provider Obstetrics & Gynecology; Visit Provider Obstetrics & Gynecology
DX: Z36.9 Encounter for antenatal screening, unspecified (principal)
CPT/HCPCS: 36415; 59025; 80053; 85025; G0378; G0379

== ENCOUNTER 2024-10-27 08:56 | Observation (INO) | payer OTHER, SELFPAY ==
[2024-10-27 09:55] LABS: Add Manual Diff / Slide Review NO; Basophils Absolute Auto 100 /uL (0-100); Basophils Percent Auto 0.5 % (0-2); Eosinophils Absolute Auto 0 /uL (0-450); Eosinophils Percent Auto 0.4 % (2-4); Hematocrit 34.4 % (36-46); Lymphocytes Absolute Auto 1200 /uL (1100-4500); Lymphocytes Percent Auto 10.6 % (25-40); Mean Corpuscular Hemoglobin 31.2 PG (26-34); Mean Corpuscular Volume 89.2 fL (80-100); Monocytes Absolute Auto 700 /uL (0-900); Monocytes Percent Auto 6.7 % (3-14); Neutrophils Absolute Auto 8900 /uL (1500-7000); Neutrophils Percent Auto 81.8 % (50-75); Platelet Count 196 X10^3/uL (150-400); Red Blood Cell Count 3.85 X10^6/uL (4.0-5.2); Red Cell Distribution Width 12.4 % (11.6-14.8); White Blood Cell Count 10.9 X10^3/uL (4.5-11.0)
[2024-10-27 10:09] LABS: Alanine Aminotransferase 38 IU/L (<35); Albumin 3.5 g/dL (3.5-5.0); Albumin Globulin Ratio 1.3 (1.0-2.8); Alkaline Phosphatase 83 U/L (38-126); Aspartate Aminotransferase 28 IU/L (14-36); BUN Creatinine Ratio 14.6 (6-22); Bilirubin Total 0.3 mg/dL (0.2-1.3); Blood Urea Nitrogen 7 mg/dL (7-17); Calcium 9.1 mg/dL (8.4-10.2); Carbon Dioxide 19 mmol/L (22-32); Chloride 108 mmol/L (98-107); Estimated Glomerular Filt Rate > 60 mL/min (>60); Globulin 2.7 g/dL (1.7-4.1); Glucose 104 mg/dL (70-99); HEMOLYSIS < 15 (0-50); Potassium 3.4 mmol/L (3.4-5.1); Sodium 136 mmol/L (137-145); Total Protein 6.2 g/dL (6.3-8.2); Uric Acid 3.4 mg/dL (2.5-6.2)
[2024-10-27 11:01] LABS: Creatinine Urine Random 42.84 mg/dL; Protein (Total) Urine Random 16 mg/dL (0-12); Protein Creatinine Ratio Urine 0.37 GRAM/24H
--- NOTE | 2024-10-27 11:11 | PM.OBTRLD ---
Visit Information Visit Information Date of evaluation: 10/27/24 Primary OB Provider: Eliane Malhotra On-call OB Provider: Mahogany Fitch Reason for Evaluation: Yes non-stress test and Yes other Comments/Additional reasons for admission: 29yo G1 at 29w2d presents for scheduled NST, serial PIH labs in setting of recently diagnosed preE without severe features. Pt states she is feeling well, has been doing absolutely nothing/laying low, no home BP readings >140/>90, no recurrent BENITES/vision changes. [facility] Medical History (Updated 05/13/24 @ 10:37 by Melva Wong, RN) Foot fracture (~2017) Surgical History (Updated 05/13/24 @ 10:37 by Melva Wong RN) [place] teeth removed (07/18/16) Anesthesia History of Achilles tendon repair (~2014) Family History (Updated 05/13/24 @ 10:43 by Melva Wong RN) Father Age: 62 Diabetes mellitus Hypertension Mother Age: 60 Mental health problem Brother Mental health problem Cystic fibrosis Substance abuse Sister Age: 31 Pre-eclampsia, severe hemorrhage Family/Other Pneumothorax, spontaneous, tension Cerebral palsy Prematurity Family/Other HIDS (hyperimmunoglobulinemia D with recurrent fever syndrome) Monoallelic mutation of MVK gene Grandmother Diabetes mellitus Von Willebrand disease Social History marital status: number of children: 0 household members: spouse lives independently: Yes caregiver/support person: No housing: house pets and animals: Yes (dog) education level: college (bachelor's degree) occupational status: employed ([employer]) current occupational exposures/hazards: No special jose elias needs: No travel history: recent ([place], [place]) seatbelt use: always helmet use: Yes working smoke detector in home: Yes fire extinguisher in home: Yes carbon monox detector in home: Yes firearms in home: Yes firearms unloaded and locked: Yes do you feel safe at home: Yes second hand exposure: No alcohol intake: former (very rarely when not ) substance use type: does not use during the past year weight has: increased > 10 lbs (muscle weight, very physically active) well-balanced diet: daily or most days daily servings fruits/ve or more times/day caffeine: Yes (aware of 200mg limit; previously 400+mg/day prior to ) Type(s) of exercise: aerobic, bicycling, swimming and weight lifting frequency: daily additional social history: 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 Discussed general exercise recommendations in , travel precautions. Pt does have several trips planned in the next few months, including [place] and , travel recommendations reviewed including compression socks, frequent ambulation, LDASA after 12 wk. Review of Systems Review of Systems ROS: Yes All systems reviewed with the patient and are negative except as otherwise documented Exam Vital Signs (past 8 hours): 110s-130s/70-80s Const General: cooperative, healthy appearing and comfortable Resp Effort & Inspection: normal respiratory effort and able to speak in complete sentences Objective Labs 10/27/24 09:45 10/27/24 09:45 Labs: Laboratory Results - last 24 hr 10/27/24 10/27/24 09:45 09:50 WBC 10.9 RBC 3.85 L Hgb 12.0 Hct 34.4 L MCV 89.2 MCH 31.2 MCHC 35.0 RDW 12.4 Plt Count 196 Neut % (Auto) 81.8 H Lymph % (Auto) 10.6 L [place] % (Auto) 6.7 Eos % (Auto) 0.4 L Baso % (Auto) 0.5 Neut # (Auto) 8900 H Lymph # (Auto) 1200 [place] # (Auto) 700 Eos # (Auto) 0 Baso # (Auto) 100 Sodium 136 L Potassium 3.4 Chloride 108 H Carbon Dioxide 19 L BUN 7 Creatinine 0.48 L Estimated GFR > 60 BUN/Creatinine Ratio 14.6 Glucose 104 H Uric Acid 3.4 Calcium 9.1 Total Bilirubin 0.3 AST 28 ALT 38 H Alkaline Phosphatase 83 Total Protein 6.2 L Albumin 3.5 Globulin 2.7 Albumin/Globulin Ratio 1.3 U Random Total Protein 16 H Urine Creatinine 42.84 Protein/Creatinin Ratio 0.37 Evaluation Evaluation Baseline heart rate: 140 Variability: Moderate (11-25) monitor accelerations: Present Monitor Decelerations: Absent Status: Category l Diagnosis, Plan/Disposition Plan/Disposition Plan: PIH labs stable, continued down-trending LFT normotensive today without antihypertensive medication persistent proteinuria strict FM/PTL/PIH precautions, repeat NST with last short interval CBC/CMP at that time, planned weekly lab + twice weekly NST thereafter, referral to MFM given early and atypical presentation
== END 2024-10-27 11:13 | disposition home or self-care (01) ==
PROVIDERS: Admitting Provider Obstetrics & Gynecology; Referring Provider Obstetrics & Gynecology; Visit Provider Obstetrics & Gynecology
DX: Z36.9 Encounter for antenatal screening, unspecified (principal)
CPT/HCPCS: 59025; 59050; 80053; 84550; 85025; G0378; G0379

== ENCOUNTER 2024-10-29 13:11 | Outpatient (CLI) | payer OTHER, SELFPAY ==
--- NOTE | 2024-10-29 13:50 | P.TNLD_ITS ---
Visit Information Visit Information Date of evaluation: 10/29/24 Primary OB Provider: Eliane Malhotra On-call OB Provider: Bre Aguirre Comments/Additional reasons for admission: Patient is 29 yo F G1 at 29w1d here for HR of 150 while walking her dog. DX with pre-eclampsia on 10/24. She has intermittent floaters, intermittent RUQ pain. She reports no severe blood pressures at home. Vital Signs Vital Signs: BP: 133/86; P 105, Sp02 100% PFSH Medical History (Updated 05/13/24 @ 10:37 by Melva Wong RN) Foot fracture (~2017) Surgical History (Updated 05/13/24 @ 10:37 by Melva Wong RN) [place] teeth removed (07/18/16) Anesthesia History of Achilles tendon repair (~2014) Family History (Updated 05/13/24 @ 10:43 by Melva Wong RN) Father Age: 62 Diabetes mellitus Hypertension Mother Age: 60 Mental health problem Brother Mental health problem Cystic fibrosis Substance abuse Sister Age: 31 Pre-eclampsia, severe hemorrhage Family/Other Pneumothorax, spontaneous, tension Cerebral palsy Prematurity Family/Other HIDS (hyperimmunoglobulinemia D with recurrent fever syndrome) Monoallelic mutation of MVK gene Grandmother Diabetes mellitus Von Willebrand disease Social History marital status: number of children: 0 household members: spouse lives independently: Yes caregiver/support person: No housing: house pets and animals: Yes (dog) education level: college (bachelor's degree) occupational status: employed () current occupational exposures/hazards: No special jose elias needs: No travel history: recent ([place], [place]) seatbelt use: always helmet use: Yes working smoke detector in home: Yes fire extinguisher in home: Yes carbon monox detector in home: Yes firearms in home: Yes firearms unloaded and locked: Yes do you feel safe at home: Yes second hand exposure: No alcohol intake: former (very rarely when not ) substance use type: does not use during the past year weight has: increased > 10 lbs (muscle weight, very physically active) well-balanced diet: daily or most days daily servings fruits/ve or more times/day caffeine: Yes (aware of 200mg limit; previously 400+mg/day prior to ) Type(s) of exercise: aerobic, bicycling, swimming and weight lifting frequency: daily additional social history: 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 Discussed general exercise recommendations in , travel precautions. Pt does have several trips planned in the next few months, including [place] and , travel recommendations reviewed including compression socks, frequent ambulation, LDASA after 12 wk. Evaluation Evaluation Baseline heart rate: 150 Variability: Average (6-10) monitor accelerations: Present Monitor Decelerations: Absent Category of Tracing: Reactive Diagnosis, Plan/Disposition Plan/Disposition Plan: Patient is 29 yo F G1 at 29w1d here for elevated HR. Dx of pre-eclampsia. HR here normal. No signs of worsening pre-e. Last labs done 2 days ago. -safe for discharge -fu tomorrow for NST -pre-eclampsia precautions given OB Disposition: home
== END 2024-10-29 14:05 | disposition home or self-care (01) ==
LOC: LABOR 13:40 → OB 14:29
PROVIDERS: Referring Provider Obstetrics & Gynecology; Visit Provider Obstetrics & Gynecology
DX: Z36.9 Encounter for antenatal screening, unspecified (principal)
CPT/HCPCS: 59025; G0378; G0379

== ENCOUNTER 2024-10-30 08:55 | Outpatient (CLI) | payer OTHER, SELFPAY ==
--- NOTE | 2024-10-30 09:47 | PM.OBTRLD ---
Visit Information Visit Information Date of evaluation: 10/30/24 Primary OB Provider: Eliane Malhotra On-call OB Provider: Gage Cuellar Reason for Evaluation: Yes non-stress test Comments/Additional reasons for admission: 29yo G1 at 29w4d, scheduled interval NST/PIH labs in setting of early diagnosis preE without severe features. Patient states that she continues to have intermittent vision floaters but otherwise is feeling normal. Has continued with modified bed rest, check BP at home and all values <140 SBP/<90 DBP. Initial mild range BP on arrival to unit today, resolved following adequate rest. Patient counseled on and in agreement with referral for MFM consultation, planned continuation of twice weekly NST with once weekly PIH labs unless interval sx develop PFSH Medical History (Updated 05/13/24 @ 10:37 by Melva Wong RN) Foot fracture (~2017) Surgical History (Updated 05/13/24 @ 10:37 by Melva Wong RN) [place] teeth removed (07/18/16) Anesthesia History of Achilles tendon repair (~2014) Family History (Updated 05/13/24 @ 10:43 by Melva Wong, RN) Father Age: 62 Diabetes mellitus Hypertension Mother Age: 60 Mental health problem Brother Mental health problem Cystic fibrosis Substance abuse Sister Age: 31 Pre-eclampsia, severe hemorrhage Family/Other Pneumothorax, spontaneous, tension Cerebral palsy Prematurity Family/Other HIDS (hyperimmunoglobulinemia D with recurrent fever syndrome) Monoallelic mutation of MVK gene Grandmother Diabetes mellitus Von Willebrand disease Social History marital status: number of children: 0 household members: spouse lives independently: Yes caregiver/support person: No housing: house pets and animals: Yes (dog) education level: college (bachelor's degree) occupational status: employed () current occupational exposures/hazards: No special jose elias needs: No travel history: recent ([place], [place]) seatbelt use: always helmet use: Yes working smoke detector in home: Yes fire extinguisher in home: Yes carbon monox detector in home: Yes firearms in home: Yes firearms unloaded and locked: Yes do you feel safe at home: Yes second hand exposure: No alcohol intake: former (very rarely when not ) substance use type: does not use during the past year weight has: increased > 10 lbs (muscle weight, very physically active) well-balanced diet: daily or most days daily servings fruits/ve or more times/day caffeine: Yes (aware of 200mg limit; previously 400+mg/day prior to ) Type(s) of exercise: aerobic, bicycling, swimming and weight lifting frequency: daily additional social history: 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 Discussed general exercise recommendations in , travel precautions. Pt does have several trips planned in the next few months, including [place] and , travel recommendations reviewed including compression socks, frequent ambulation, LDASA after 12 wk. Objective Labs 10/30/24 09:48 10/30/24 09:40 Evaluation Evaluation Baseline heart rate: 140 Variability: Moderate (11-25) monitor accelerations: Present Monitor Decelerations: Absent Category of Tracing: Reactive Status: Category l Diagnosis, Plan/Disposition Plan/Disposition Plan: 29w4d, preE without severe features MFM consult in progress strict interval precautions continue twice weekly NST, once weekly PIH labs OB Disposition: home
[2024-10-30 10:01] LABS: Add Manual Diff / Slide Review NO; Basophils Absolute Auto 100 /uL (0-100); Basophils Percent Auto 0.6 % (0-2); Eosinophils Absolute Auto 0 /uL (0-450); Eosinophils Percent Auto 0.5 % (2-4); Hematocrit 33.5 % (36-46); Hemoglobin 11.7 g/dL (12.0-16.0); Lymphocytes Absolute Auto 900 /uL (1100-4500); Lymphocytes Percent Auto 10.4 % (25-40); Mean Corpuscular Hemoglobin 31.5 PG (26-34); Mean Corpuscular Volume 90.2 fL (80-100); Monocytes Absolute Auto 600 /uL (0-900); Monocytes Percent Auto 6.4 % (3-14); Neutrophils Absolute Auto 7400 /uL (1500-7000); Neutrophils Percent Auto 82.1 % (50-75); Platelet Count 202 X10^3/uL (150-400); Red Blood Cell Count 3.72 X10^6/uL (4.0-5.2); Red Cell Distribution Width 12.3 % (11.6-14.8)
[2024-10-30 10:06] LABS: Alanine Aminotransferase 31 IU/L (<35); Albumin 3.4 g/dL (3.5-5.0); Albumin Globulin Ratio 1.2 (1.0-2.8); Alkaline Phosphatase 82 U/L (38-126); Aspartate Aminotransferase 34 IU/L (14-36); BUN Creatinine Ratio 13.7 (6-22); Bilirubin Total 0.3 mg/dL (0.2-1.3); Blood Urea Nitrogen 7 mg/dL (7-17); Calcium 8.8 mg/dL (8.4-10.2); Carbon Dioxide 23 mmol/L (22-32); Chloride 106 mmol/L (98-107); Estimated Glomerular Filt Rate > 60 mL/min (>60); Globulin 2.9 g/dL (1.7-4.1); Glucose 88 mg/dL (70-99); HEMOLYSIS 15 (0-50); Potassium 3.7 mmol/L (3.4-5.1); Sodium 134 mmol/L (137-145); Total Protein 6.3 g/dL (6.3-8.2)
== END 2024-10-30 10:35 | disposition home or self-care (01) ==
LOC: LABOR 09:37 → OB 14:02
PROVIDERS: Referring Provider Obstetrics & Gynecology; Visit Provider Obstetrics & Gynecology
DX: Z36.9 Encounter for antenatal screening, unspecified (principal)
CPT/HCPCS: 36415; 59025; 80053; 85025; G0378; G0379

== ENCOUNTER 2024-11-03 08:24 | Outpatient (CLI) | payer OTHER, SELFPAY ==
[2024-11-03] MEDS: NIFEdipine 30 MG TAB ER PO (08:46)
[2024-11-03 09:02] LABS: Add Manual Diff / Slide Review NO; Basophils Absolute Auto 100 /uL (0-100); Basophils Percent Auto 0.6 % (0-2); Eosinophils Absolute Auto 0 /uL (0-450); Eosinophils Percent Auto 0.4 % (2-4); Hematocrit 35.1 % (36-46); Lymphocytes Absolute Auto 1100 /uL (1100-4500); Lymphocytes Percent Auto 10.8 % (25-40); Mean Corpuscular HGB Conc 34.1 % (30-36); Mean Corpuscular Hemoglobin 30.6 PG (26-34); Mean Corpuscular Volume 89.6 fL (80-100); Monocytes Absolute Auto 600 /uL (0-900); Monocytes Percent Auto 6.2 % (3-14); Neutrophils Absolute Auto 8300 /uL (1500-7000); Platelet Count 199 X10^3/uL (150-400); Red Blood Cell Count 3.92 X10^6/uL (4.0-5.2); Red Cell Distribution Width 12.2 % (11.6-14.8); White Blood Cell Count 10.1 X10^3/uL (4.5-11.0)
[2024-11-03 09:13] LABS: Alanine Aminotransferase 30 IU/L (<35); Albumin 3.6 g/dL (3.5-5.0); Albumin Globulin Ratio 1.3 (1.0-2.8); Alkaline Phosphatase 81 U/L (38-126); Aspartate Aminotransferase 30 IU/L (14-36); BUN Creatinine Ratio 12.8 (6-22); Bilirubin Total 0.3 mg/dL (0.2-1.3); Blood Urea Nitrogen 6 mg/dL (7-17); Calcium 8.8 mg/dL (8.4-10.2); Carbon Dioxide 19 mmol/L (22-32); Chloride 106 mmol/L (98-107); Estimated Glomerular Filt Rate > 60 mL/min (>60); Globulin 2.8 g/dL (1.7-4.1); Glucose 107 mg/dL (70-99); HEMOLYSIS < 15 (0-50); Potassium 3.4 mmol/L (3.4-5.1); Sodium 134 mmol/L (137-145); Total Protein 6.4 g/dL (6.3-8.2); Uric Acid 3.4 mg/dL (2.5-6.2)
--- NOTE | 2024-11-03 09:20 | PM.OBTRLD ---
Visit Information Visit Information Date of evaluation: 11/03/24 Primary OB Provider: Eliane Malhotra On-call OB Provider: Gage Cuellar Reason for Evaluation: Yes non-stress test Comments/Additional reasons for admission: preE without severe features, weekly PIH labs/twice weekly NST [facility] Medical History (Updated 10/30/24 @ 17:05 by Eliane Malhotra MD) Pre-eclampsia in third trimester Foot fracture (~2017) Surgical History (Updated 05/13/24 @ 10:37 by Melva Wong, RN) [place] teeth removed (07/18/16) Anesthesia History of Achilles tendon repair (~2014) Family History (Updated 05/13/24 @ 10:43 by Melva Wong, RN) Father Age: 62 Diabetes mellitus Hypertension Mother Age: 60 Mental health problem Brother Mental health problem Cystic fibrosis Substance abuse Sister Age: 31 Pre-eclampsia, severe hemorrhage Family/Other Pneumothorax, spontaneous, tension Cerebral palsy Prematurity Family/Other HIDS (hyperimmunoglobulinemia D with recurrent fever syndrome) Monoallelic mutation of MVK gene Grandmother Diabetes mellitus Von Willebrand disease Social History marital status: number of children: 0 household members: spouse lives independently: Yes caregiver/support person: No housing: house pets and animals: Yes (dog) education level: college (bachelor's degree) occupational status: employed () current occupational exposures/hazards: No special jose elias needs: No travel history: recent (, [place]) seatbelt use: always helmet use: Yes working smoke detector in home: Yes fire extinguisher in home: Yes carbon monox detector in home: Yes firearms in home: Yes firearms unloaded and locked: Yes do you feel safe at home: Yes second hand exposure: No alcohol intake: former (very rarely when not ) substance use type: does not use during the past year weight has: increased > 10 lbs (muscle weight, very physically active) well-balanced diet: daily or most days daily servings fruits/ve or more times/day caffeine: Yes (aware of 200mg limit; previously 400+mg/day prior to ) Type(s) of exercise: aerobic, bicycling, swimming and weight lifting frequency: daily additional social history: 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 Discussed general exercise recommendations in , travel precautions. Pt does have several trips planned in the next few months, including [place] and , travel recommendations reviewed including compression socks, frequent ambulation, LDASA after 12 wk. Objective Labs 11/03/24 08:52 11/03/24 08:52 Labs: Laboratory Results - last 24 hr 11/03/24 08:52 WBC 10.1 RBC 3.92 L Hgb 12.0 Hct 35.1 L MCV 89.6 MCH 30.6 MCHC 34.1 RDW 12.2 Plt Count 199 Neut % (Auto) 82.0 H Lymph % (Auto) 10.8 L [place] % (Auto) 6.2 Eos % (Auto) 0.4 L Baso % (Auto) 0.6 Neut # (Auto) 8300 H Lymph # (Auto) 1100 [place] # (Auto) 600 Eos # (Auto) 0 Baso # (Auto) 100 Sodium 134 L Potassium 3.4 Chloride 106 Carbon Dioxide 19 L BUN 6 L Creatinine 0.47 L Estimated GFR > 60 BUN/Creatinine Ratio 12.8 Glucose 107 H Uric Acid 3.4 Calcium 8.8 Total Bilirubin 0.3 AST 30 ALT 30 Alkaline Phosphatase 81 Total Protein 6.4 Albumin 3.6 Globulin 2.8 Albumin/Globulin Ratio 1.3 Evaluation Evaluation Baseline heart rate: 140 Variability: Average (6-10) monitor accelerations: Present Monitor Decelerations: Absent Category of Tracing: Reactive Status: Category l Diagnosis, Plan/Disposition Plan/Disposition Plan: strict interval precautions start home nifedipine 30mg XR daily MFM referral pending f/u NST as scheduled OB Disposition: home
== END 2024-11-03 09:24 | disposition home or self-care (01) ==
LOC: LABOR 08:48 → OB 09:40
PROVIDERS: Referring Provider Obstetrics & Gynecology; Visit Provider Obstetrics & Gynecology
DX: O14.03 Mild to moderate pre-eclampsia, third trimester (principal); Z3A.30 30 weeks gestation of pregnancy
CPT/HCPCS: 36415; 59025; 80053; 84550; 85025; G0378; G0379

== ENCOUNTER 2024-11-06 14:58 | Outpatient (CLI) | payer OTHER, SELFPAY | END 2024-11-06 15:50 | disposition home or self-care (01) | LOC: LABOR 15:24 → OB 11-09 07:15 | PROVIDERS: Referring Provider Obstetrics & Gynecology; Visit Provider Obstetrics & Gynecology | DX: O14.93 Unspecified pre-eclampsia, third trimester (principal); Z3A.30 30 weeks gestation of pregnancy | CPT/HCPCS: 59025; G0378; G0379 ==

== ENCOUNTER 2024-11-10 08:46 | Outpatient (CLI) | payer OTHER, SELFPAY ==
--- NOTE | 2024-11-10 09:12 | PM.OBTRLD ---
Visit Information Visit Information Date of evaluation: 11/10/24 Primary OB Provider: Eliane Malhotra On-call OB Provider: Eliane Malhotra Reason for Evaluation: Yes non-stress test Vital Signs Vital Signs: maternal VSS, all SBP <140, all DBP <90 PFSH Medical History (Updated 10/30/24 @ 17:05 by Eliane Malhotra MD) Pre-eclampsia in third trimester Foot fracture (~2017) Surgical History (Updated 05/13/24 @ 10:37 by Melva Wong, RN) [place] teeth removed (07/18/16) Anesthesia History of Achilles tendon repair (~2014) Family History (Updated 05/13/24 @ 10:43 by Melva Wong, RN) Father Age: 62 Diabetes mellitus Hypertension Mother Age: 60 Mental health problem Brother Mental health problem Cystic fibrosis Substance abuse Sister Age: 31 Pre-eclampsia, severe hemorrhage Family/Other Pneumothorax, spontaneous, tension Cerebral palsy Prematurity Family/Other HIDS (hyperimmunoglobulinemia D with recurrent fever syndrome) Monoallelic mutation of MVK gene Grandmother Diabetes mellitus Von Willebrand disease Social History marital status: number of children: 0 household members: spouse lives independently: Yes caregiver/support person: No housing: house pets and animals: Yes (dog) education level: college (bachelor's degree) occupational status: employed () current occupational exposures/hazards: No special jose elias needs: No travel history: recent (, [place]) seatbelt use: always helmet use: Yes working smoke detector in home: Yes fire extinguisher in home: Yes carbon monox detector in home: Yes firearms in home: Yes firearms unloaded and locked: Yes do you feel safe at home: Yes second hand exposure: No alcohol intake: former (very rarely when not ) substance use type: does not use during the past year weight has: increased > 10 lbs (muscle weight, very physically active) well-balanced diet: daily or most days daily servings fruits/ve or more times/day caffeine: Yes (aware of 200mg limit; previously 400+mg/day prior to ) Type(s) of exercise: aerobic, bicycling, swimming and weight lifting frequency: daily additional social history: 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 Discussed general exercise recommendations in , travel precautions. Pt does have several trips planned in the next few months, including [place] and , travel recommendations reviewed including compression socks, frequent ambulation, LDASA after 12 wk. Objective Labs 11/10/24 09:18 11/10/24 09:18 Evaluation Evaluation Baseline heart rate: 135 Variability: Moderate (11-25) monitor accelerations: Present Monitor Decelerations: Absent Category of Tracing: Reactive Status: Category l Diagnosis, Plan/Disposition Plan/Disposition Plan: 29yo G1 at 31w1d, preE without severe features weekly PIH labs without exacerbation BP stable on current home nifedipine strict precautions continue schedule of surveillance as scheduled OB Disposition: home
[2024-11-10 09:25] LABS: Add Manual Diff / Slide Review NO; Basophils Absolute Auto 100 /uL (0-100); Basophils Percent Auto 0.6 % (0-2); Eosinophils Absolute Auto 0 /uL (0-450); Eosinophils Percent Auto 0.3 % (2-4); Hematocrit 35.3 % (36-46); Hemoglobin 12.2 g/dL (12.0-16.0); Lymphocytes Absolute Auto 1400 /uL (1100-4500); Lymphocytes Percent Auto 11.2 % (25-40); Mean Corpuscular HGB Conc 34.7 % (30-36); Mean Corpuscular Hemoglobin 30.7 PG (26-34); Mean Corpuscular Volume 88.6 fL (80-100); Monocytes Absolute Auto 800 /uL (0-900); Monocytes Percent Auto 6.4 % (3-14); Neutrophils Absolute Auto 9900 /uL (1500-7000); Neutrophils Percent Auto 81.5 % (50-75); Platelet Count 191 X10^3/uL (150-400); Red Blood Cell Count 3.99 X10^6/uL (4.0-5.2); Red Cell Distribution Width 12.2 % (11.6-14.8); White Blood Cell Count 12.1 X10^3/uL (4.5-11.0)
[2024-11-10 09:36] LABS: Alanine Aminotransferase 31 IU/L (<35); Albumin 3.6 g/dL (3.5-5.0); Albumin Globulin Ratio 1.3 (1.0-2.8); Alkaline Phosphatase 92 U/L (38-126); Aspartate Aminotransferase 28 IU/L (14-36); BUN Creatinine Ratio 10.4 (6-22); Bilirubin Total 0.3 mg/dL (0.2-1.3); Blood Urea Nitrogen 5 mg/dL (7-17); Calcium 8.9 mg/dL (8.4-10.2); Carbon Dioxide 19 mmol/L (22-32); Chloride 108 mmol/L (98-107); Estimated Glomerular Filt Rate > 60 mL/min (>60); Globulin 2.8 g/dL (1.7-4.1); Glucose 96 mg/dL (70-99); HEMOLYSIS < 15 (0-50); Potassium 3.7 mmol/L (3.4-5.1); Sodium 135 mmol/L (137-145); Total Protein 6.4 g/dL (6.3-8.2); Uric Acid 3.1 mg/dL (2.5-6.2)
== END 2024-11-10 09:51 | disposition home or self-care (01) ==
LOC: LABOR 09:00 → OB 11:07
PROVIDERS: Referring Provider Obstetrics & Gynecology; Visit Provider Obstetrics & Gynecology
DX: O14.03 Mild to moderate pre-eclampsia, third trimester (principal); Z3A.31 31 weeks gestation of pregnancy
CPT/HCPCS: 59025; 80053; 84550; 85025; G0378; G0379

== ENCOUNTER 2024-11-13 08:52 | Outpatient (CLI) | payer OTHER, SELFPAY ==
--- NOTE | 2024-11-13 09:27 | P.TNLD_ITS ---
Visit Information Visit Information Date of evaluation: 11/13/24 Primary OB Provider: Eliane Malhotra On-call OB Provider: Mahogany Fitch Reason for Evaluation: Yes non-stress test Comments/Additional reasons for admission: 29yo G1 at 31w4d, preE without severe features denies BENITES, BP elevation at home, compliant with nifedipine 30mg XR Vital Signs Vital Signs: all values <140 SBP, <90 systolic PFSH Medical History (Updated 10/30/24 @ 17:05 by Eliane Malhotra MD) Pre-eclampsia in third trimester Foot fracture (~2017) Surgical History (Updated 05/13/24 @ 10:37 by Melva Wong, RN) [place] teeth removed (07/18/16) Anesthesia History of Achilles tendon repair (~2014) Family History (Updated 05/13/24 @ 10:43 by Melva Wong, RN) Father Age: 62 Diabetes mellitus Hypertension Mother Age: 60 Mental health problem Brother Mental health problem Cystic fibrosis Substance abuse Sister Age: 31 Pre-eclampsia, severe hemorrhage Family/Other Pneumothorax, spontaneous, tension Cerebral palsy Prematurity Family/Other HIDS (hyperimmunoglobulinemia D with recurrent fever syndrome) Monoallelic mutation of MVK gene Grandmother Diabetes mellitus Von Willebrand disease Social History marital status: number of children: 0 household members: spouse lives independently: Yes caregiver/support person: No housing: house pets and animals: Yes (dog) education level: college (bachelor's degree) occupational status: employed () current occupational exposures/hazards: No special jose elias needs: No travel history: recent ([place], [place]) seatbelt use: always helmet use: Yes working smoke detector in home: Yes fire extinguisher in home: Yes carbon monox detector in home: Yes firearms in home: Yes firearms unloaded and locked: Yes do you feel safe at home: Yes second hand exposure: No alcohol intake: former (very rarely when not ) substance use type: does not use during the past year weight has: increased > 10 lbs (muscle weight, very physically active) well-balanced diet: daily or most days daily servings fruits/ve or more times/day caffeine: Yes (aware of 200mg limit; previously 400+mg/day prior to ) Type(s) of exercise: aerobic, bicycling, swimming and weight lifting frequency: daily additional social history: 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 Discussed general exercise recommendations in , travel precautions. Pt does have several trips planned in the next few months, including [place] and , travel recommendations reviewed including compression socks, frequent ambulation, LDASA after 12 wk. Evaluation Evaluation Baseline heart rate: 140 Variability: Moderate (11-25) monitor accelerations: Present Monitor Decelerations: Absent Category of Tracing: Reactive Status: Category l Diagnosis, Plan/Disposition Plan/Disposition Plan: strict precautions continue schedule of surveillance as scheduled OB Disposition: home
== END 2024-11-13 09:34 | disposition home or self-care (01) ==
LOC: LABOR 09:25 → OB 10:28
PROVIDERS: Referring Provider Obstetrics & Gynecology; Visit Provider Obstetrics & Gynecology
DX: O14.03 Mild to moderate pre-eclampsia, third trimester (principal); Z3A.31 31 weeks gestation of pregnancy
CPT/HCPCS: 59025; G0378; G0379

== ENCOUNTER 2024-11-17 09:12 | Outpatient (CLI) | payer OTHER, SELFPAY ==
[2024-11-17 09:36] LABS: Add Manual Diff / Slide Review NO; Basophils Absolute Auto 100 /uL (0-100); Basophils Percent Auto 0.5 % (0-2); Eosinophils Absolute Auto 100 /uL (0-450); Eosinophils Percent Auto 0.5 % (2-4); Hematocrit 37.6 % (36-46); Hemoglobin 12.8 g/dL (12.0-16.0); Lymphocytes Absolute Auto 1200 /uL (1100-4500); Lymphocytes Percent Auto 10.5 % (25-40); Mean Corpuscular Hemoglobin 30.5 PG (26-34); Mean Corpuscular Volume 89.6 fL (80-100); Monocytes Absolute Auto 600 /uL (0-900); Monocytes Percent Auto 5.8 % (3-14); Neutrophils Absolute Auto 9100 /uL (1500-7000); Neutrophils Percent Auto 82.7 % (50-75); Platelet Count 193 X10^3/uL (150-400); Red Blood Cell Count 4.19 X10^6/uL (4.0-5.2); Red Cell Distribution Width 12.4 % (11.6-14.8); White Blood Cell Count 10.9 X10^3/uL (4.5-11.0)
[2024-11-17 09:55] LABS: Alanine Aminotransferase 29 IU/L (<35); Albumin 3.9 g/dL (3.5-5.0); Albumin Globulin Ratio 1.2 (1.0-2.8); Alkaline Phosphatase 105 U/L (38-126); Aspartate Aminotransferase 30 IU/L (14-36); BUN Creatinine Ratio 8.9 (6-22); Bilirubin Total 0.3 mg/dL (0.2-1.3); Blood Urea Nitrogen 5 mg/dL (7-17); Calcium 9.2 mg/dL (8.4-10.2); Carbon Dioxide 21 mmol/L (22-32); Chloride 106 mmol/L (98-107); Estimated Glomerular Filt Rate > 60 mL/min (>60); Globulin 3.3 g/dL (1.7-4.1); Glucose 111 mg/dL (70-99); HEMOLYSIS < 15 (0-50); Potassium 3.6 mmol/L (3.4-5.1); Sodium 136 mmol/L (137-145); Total Protein 7.2 g/dL (6.3-8.2); Uric Acid 3.5 mg/dL (2.5-6.2)
--- NOTE | 2024-11-17 10:03 | PM.OBTRLD ---
Visit Information Visit Information Date of evaluation: 11/17/24 Primary OB Provider: Eliane Malhotra On-call OB Provider: Mahogany Fitch Reason for Evaluation: Yes non-stress test Comments/Additional reasons for admission: 29yo G1 at 32w1d, preE without severe features on nifedipine 30mg XR. Weekly PIH labs, twice weekly NST. Seen in office immediately prior to today's assessment [facility] Medical History (Updated 10/30/24 @ 17:05 by Eliane Malhotra MD) Pre-eclampsia in third trimester Foot fracture (~2017) Surgical History (Updated 05/13/24 @ 10:37 by Melva Wong, RN) [place] teeth removed (07/18/16) Anesthesia History of Achilles tendon repair (~2014) Family History (Updated 05/13/24 @ 10:43 by Melva Wong, RN) Father Age: 62 Diabetes mellitus Hypertension Mother Age: 60 Mental health problem Brother Mental health problem Cystic fibrosis Substance abuse Sister Age: 31 Pre-eclampsia, severe hemorrhage Family/Other Pneumothorax, spontaneous, tension Cerebral palsy Prematurity Family/Other HIDS (hyperimmunoglobulinemia D with recurrent fever syndrome) Monoallelic mutation of MVK gene Grandmother Diabetes mellitus Von Willebrand disease Social History marital status: number of children: 0 household members: spouse lives independently: Yes caregiver/support person: No housing: house pets and animals: Yes (dog) education level: college (bachelor's degree) occupational status: employed () current occupational exposures/hazards: No special jose elias needs: No travel history: recent ([place], [place]) seatbelt use: always helmet use: Yes working smoke detector in home: Yes fire extinguisher in home: Yes carbon monox detector in home: Yes firearms in home: Yes firearms unloaded and locked: Yes do you feel safe at home: Yes second hand exposure: No alcohol intake: former (very rarely when not ) substance use type: does not use during the past year weight has: increased > 10 lbs (muscle weight, very physically active) well-balanced diet: daily or most days daily servings fruits/ve or more times/day caffeine: Yes (aware of 200mg limit; previously 400+mg/day prior to ) Type(s) of exercise: aerobic, bicycling, swimming and weight lifting frequency: daily additional social history: 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 Discussed general exercise recommendations in , travel precautions. Pt does have several trips planned in the next few months, including [place] and , travel recommendations reviewed including compression socks, frequent ambulation, LDASA after 12 wk. Review of Systems Review of Systems ROS: Yes All systems reviewed with the patient and are negative except as otherwise documented Exam Vital Signs (past 8 hours): reviewed in OBIX, all values <140/<90 Objective Labs 11/17/24 09:30 11/17/24 09:30 Labs: Laboratory Results - last 24 hr 11/17/24 09:30 WBC 10.9 RBC 4.19 Hgb 12.8 Hct 37.6 MCV 89.6 MCH 30.5 MCHC 34.0 RDW 12.4 Plt Count 193 Neut % (Auto) 82.7 H Lymph % (Auto) 10.5 L [place] % (Auto) 5.8 Eos % (Auto) 0.5 L Baso % (Auto) 0.5 Neut # (Auto) 9100 H Lymph # (Auto) 1200 [place] # (Auto) 600 Eos # (Auto) 100 Baso # (Auto) 100 Sodium 136 L Potassium 3.6 Chloride 106 Carbon Dioxide 21 L BUN 5 L Creatinine 0.56 Estimated GFR > 60 BUN/Creatinine Ratio 8.9 Glucose 111 H Uric Acid 3.5 Calcium 9.2 Total Bilirubin 0.3 AST 30 ALT 29 Alkaline Phosphatase 105 Total Protein 7.2 Albumin 3.9 Globulin 3.3 Albumin/Globulin Ratio 1.2 Evaluation Evaluation Baseline heart rate: 140 Variability: Moderate (11-25) monitor accelerations: Present Monitor Decelerations: Absent Category of Tracing: Reactive Status: Category l Diagnosis, Plan/Disposition Plan/Disposition Plan: cont twice weekly schedule NST strict precautions, notify provider with any concerns OB Disposition: home
== END 2024-11-17 10:09 | disposition home or self-care (01) ==
LOC: LABOR 09:45 → OB 10:33
PROVIDERS: Referring Provider Obstetrics & Gynecology; Visit Provider Obstetrics & Gynecology
DX: O14.03 Mild to moderate pre-eclampsia, third trimester (principal); Z3A.32 32 weeks gestation of pregnancy
CPT/HCPCS: 36415; 59025; 80053; 84550; 85025; G0378; G0379

== ENCOUNTER 2024-11-20 08:52 | Outpatient (CLI) | payer OTHER, SELFPAY ==
--- NOTE | 2024-11-20 10:15 | P.TNLD_ITS ---
Visit Information Visit Information Date of evaluation: 11/20/24 Primary OB Provider: Eliane Malhotra On-call OB Provider: Sindy Pino Reason for Evaluation: Yes non-stress test Comments/Additional reasons for admission: G1 at 32w4d, preE without severe features Vital Signs Vital Signs: BP 120s/80s [facility] Medical History (Updated 10/30/24 @ 17:05 by Eliane Malhotra MD) Pre-eclampsia in third trimester Foot fracture (~2017) Surgical History (Updated 05/13/24 @ 10:37 by Melva Wong RN) [place] teeth removed (07/18/16) Anesthesia History of Achilles tendon repair (~2014) Family History (Updated 05/13/24 @ 10:43 by Melva Wong RN) Father Age: 62 Diabetes mellitus Hypertension Mother Age: 60 Mental health problem Brother Mental health problem Cystic fibrosis Substance abuse Sister Age: 31 Pre-eclampsia, severe hemorrhage Family/Other Pneumothorax, spontaneous, tension Cerebral palsy Prematurity Family/Other HIDS (hyperimmunoglobulinemia D with recurrent fever syndrome) Monoallelic mutation of MVK gene Grandmother Diabetes mellitus Von Willebrand disease Social History marital status: number of children: 0 household members: spouse lives independently: Yes caregiver/support person: No housing: house pets and animals: Yes (dog) education level: college (bachelor's degree) occupational status: employed () current occupational exposures/hazards: No special jose elias needs: No travel history: recent (, [place]) seatbelt use: always helmet use: Yes working smoke detector in home: Yes fire extinguisher in home: Yes carbon monox detector in home: Yes firearms in home: Yes firearms unloaded and locked: Yes do you feel safe at home: Yes second hand exposure: No alcohol intake: former (very rarely when not ) substance use type: does not use during the past year weight has: increased > 10 lbs (muscle weight, very physically active) well-balanced diet: daily or most days daily servings fruits/ve or more times/day caffeine: Yes (aware of 200mg limit; previously 400+mg/day prior to ) Type(s) of exercise: aerobic, bicycling, swimming and weight lifting frequency: daily additional social history: 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 Discussed general exercise recommendations in , travel precautions. Pt does have several trips planned in the next few months, including [place] and , travel recommendations reviewed including compression socks, frequent ambulation, LDASA after 12 wk. Review of Systems Review of Systems ROS: Yes All systems reviewed with the patient and are negative except as otherwise documented Evaluation Evaluation Baseline heart rate: 140 Variability: Moderate (11-25) monitor accelerations: Present Monitor Decelerations: Absent Category of Tracing: Reactive Status: Category l Diagnosis, Plan/Disposition Plan/Disposition Plan: strict precautions return for twice weekly NST/weekly PIH labs continue home BP, symptom monitoring OB Disposition: home
== END 2024-11-20 10:20 | disposition home or self-care (01) ==
LOC: LABOR 09:33 → OB 10:27
PROVIDERS: Referring Provider Obstetrics & Gynecology; Visit Provider Obstetrics & Gynecology
DX: O14.03 Mild to moderate pre-eclampsia, third trimester (principal); Z3A.32 32 weeks gestation of pregnancy
CPT/HCPCS: 59025; G0378; G0379

== ENCOUNTER 2024-11-24 08:39 | Outpatient (CLI) | payer OTHER, SELFPAY ==
--- NOTE | 2024-11-24 09:23 | PM.OBTRLD ---
Visit Information Visit Information Date of evaluation: 11/24/24 Primary OB Provider: Eliane Malhotra On-call OB Provider: Mahogany Fitch Reason for Evaluation: Yes non-stress test Comments/Additional reasons for admission: 29yo G1 at 33w1d, preE without severe features nifedipine 30mg XR daily Vital Signs Vital Signs: BP 135/82, 129/80, HR 98-109 [facility] Medical History (Updated 10/30/24 @ 17:05 by Eliane Malhotra MD) Pre-eclampsia in third trimester Foot fracture (~2017) Surgical History (Updated 05/13/24 @ 10:37 by Melva Wong, RN) [place] teeth removed (07/18/16) Anesthesia History of Achilles tendon repair (~2014) Family History (Updated 05/13/24 @ 10:43 by Melva Wong, RN) Father Age: 62 Diabetes mellitus Hypertension Mother Age: 60 Mental health problem Brother Mental health problem Cystic fibrosis Substance abuse Sister Age: 31 Pre-eclampsia, severe hemorrhage Family/Other Pneumothorax, spontaneous, tension Cerebral palsy Prematurity Family/Other HIDS (hyperimmunoglobulinemia D with recurrent fever syndrome) Monoallelic mutation of MVK gene Grandmother Diabetes mellitus Von Willebrand disease Social History marital status: number of children: 0 household members: spouse lives independently: Yes caregiver/support person: No housing: house pets and animals: Yes (dog) education level: college (bachelor's degree) occupational status: employed () current occupational exposures/hazards: No special jose elias needs: No travel history: recent ([place], [place]) seatbelt use: always helmet use: Yes working smoke detector in home: Yes fire extinguisher in home: Yes carbon monox detector in home: Yes firearms in home: Yes firearms unloaded and locked: Yes do you feel safe at home: Yes second hand exposure: No alcohol intake: former (very rarely when not ) substance use type: does not use during the past year weight has: increased > 10 lbs (muscle weight, very physically active) well-balanced diet: daily or most days daily servings fruits/ve or more times/day caffeine: Yes (aware of 200mg limit; previously 400+mg/day prior to ) Type(s) of exercise: aerobic, bicycling, swimming and weight lifting frequency: daily additional social history: 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 Discussed general exercise recommendations in , travel precautions. Pt does have several trips planned in the next few months, including [place] and , travel recommendations reviewed including compression socks, frequent ambulation, LDASA after 12 wk. Review of Systems Review of Systems ROS: Yes All systems reviewed with the patient and are negative except as otherwise documented Objective Labs 11/24/24 08:50 11/24/24 08:50 Evaluation Evaluation Baseline heart rate: 145 Variability: Moderate (11-25) monitor accelerations: Present Monitor Decelerations: Absent Category of Tracing: Reactive Status: Category l Diagnosis, Plan/Disposition Plan/Disposition Plan: weekly PIH labs stable, mild isolated elevation in ALT (45) <2x normal, plan for repeat labs on Saturday, 11/27 normotensive on home nifedipine strict precautions return as scheduled for NST OB Disposition: home
[2024-11-24 09:46] LABS: Add Manual Diff / Slide Review NO; Basophils Absolute Auto 0 /uL (0-100); Basophils Percent Auto 0.4 % (0-2); Eosinophils Absolute Auto 100 /uL (0-450); Eosinophils Percent Auto 0.9 % (2-4); Hematocrit 34.2 % (36-46); Hemoglobin 11.4 g/dL (12.0-16.0); Lymphocytes Absolute Auto 1100 /uL (1100-4500); Lymphocytes Percent Auto 9.4 % (25-40); Mean Corpuscular HGB Conc 33.5 % (30-36); Mean Corpuscular Hemoglobin 29.7 PG (26-34); Mean Corpuscular Volume 88.6 fL (80-100); Monocytes Absolute Auto 700 /uL (0-900); Monocytes Percent Auto 5.9 % (3-14); Neutrophils Absolute Auto 9800 /uL (1500-7000); Neutrophils Percent Auto 83.4 % (50-75); Platelet Count 198 X10^3/uL (150-400); Red Blood Cell Count 3.86 X10^6/uL (4.0-5.2); Red Cell Distribution Width 12.7 % (11.6-14.8); White Blood Cell Count 11.8 X10^3/uL (4.5-11.0)
[2024-11-24 09:50] LABS: Alanine Aminotransferase 45 IU/L (<35); Albumin 3.5 g/dL (3.5-5.0); Albumin Globulin Ratio 1.2 (1.0-2.8); Alkaline Phosphatase 100 U/L (38-126); Aspartate Aminotransferase 35 IU/L (14-36); BUN Creatinine Ratio 8.9 (6-22); Bilirubin Total 0.2 mg/dL (0.2-1.3); Blood Urea Nitrogen 4 mg/dL (7-17); Calcium 8.5 mg/dL (8.4-10.2); Carbon Dioxide 18 mmol/L (22-32); Chloride 107 mmol/L (98-107); Estimated Glomerular Filt Rate > 60 mL/min (>60); Globulin 2.9 g/dL (1.7-4.1); Glucose 117 mg/dL (70-99); HEMOLYSIS < 15 (0-50); Potassium 3.3 mmol/L (3.4-5.1); Sodium 134 mmol/L (137-145); Total Protein 6.4 g/dL (6.3-8.2); Uric Acid 3.5 mg/dL (2.5-6.2)
== END 2024-11-24 09:58 | disposition home or self-care (01) ==
LOC: LABOR 09:30 → OB 14:41
PROVIDERS: Referring Provider Obstetrics & Gynecology; Visit Provider Obstetrics & Gynecology
DX: O14.03 Mild to moderate pre-eclampsia, third trimester (principal); Z3A.33 33 weeks gestation of pregnancy
CPT/HCPCS: 59025; 80053; 84550; 85025; G0378; G0379

== ENCOUNTER 2024-11-27 08:51 | Outpatient (CLI) | payer OTHER, SELFPAY ==
[2024-11-27 09:44] LABS: Add Manual Diff / Slide Review NO; Basophils Absolute Auto 100 /uL (0-100); Basophils Percent Auto 0.5 % (0-2); Eosinophils Absolute Auto 100 /uL (0-450); Eosinophils Percent Auto 0.7 % (2-4); Hematocrit 34.9 % (36-46); Lymphocytes Absolute Auto 1200 /uL (1100-4500); Lymphocytes Percent Auto 10.3 % (25-40); Mean Corpuscular HGB Conc 34.3 % (30-36); Mean Corpuscular Hemoglobin 30.3 PG (26-34); Mean Corpuscular Volume 88.3 fL (80-100); Monocytes Absolute Auto 600 /uL (0-900); Monocytes Percent Auto 4.9 % (3-14); Neutrophils Absolute Auto 10100 /uL (1500-7000); Neutrophils Percent Auto 83.6 % (50-75); Platelet Count 194 X10^3/uL (150-400); Red Blood Cell Count 3.95 X10^6/uL (4.0-5.2); Red Cell Distribution Width 12.3 % (11.6-14.8); White Blood Cell Count 12.1 X10^3/uL (4.5-11.0)
[2024-11-27 10:15] LABS: Alanine Aminotransferase 32 IU/L (<35); Albumin 3.5 g/dL (3.5-5.0); Albumin Globulin Ratio 1.2 (1.0-2.8); Alkaline Phosphatase 103 U/L (38-126); Aspartate Aminotransferase 29 IU/L (14-36); BUN Creatinine Ratio 10.3 (6-22); Bilirubin Total 0.3 mg/dL (0.2-1.3); Blood Urea Nitrogen 4 mg/dL (7-17); Calcium 9.3 mg/dL (8.4-10.2); Carbon Dioxide 18 mmol/L (22-32); Chloride 107 mmol/L (98-107); Estimated Glomerular Filt Rate > 60 mL/min (>60); Glucose 125 mg/dL (70-99); HEMOLYSIS < 15 (0-50); Potassium 3.4 mmol/L (3.4-5.1); Sodium 135 mmol/L (137-145); Total Protein 6.5 g/dL (6.3-8.2); Uric Acid 3.9 mg/dL (2.5-6.2)
--- NOTE | 2024-11-27 11:08 | P.TNLD_ITS ---
Visit Information Visit Information Date of evaluation: 11/27/24 Primary OB Provider: Eliane Malhotra On-call OB Provider: Eliane Malhotra Reason for Evaluation: Yes non-stress test Comments/Additional reasons for admission: g1 33w4d, preE without severe features nifedipine 30mg XR, asymptomatic last PIH labs 11/25 with isolated elevation in ALT, repeat PIH labs today Vital Signs Vital Signs: BP 117/77 [facility] Medical History (Updated 10/30/24 @ 17:05 by Eliane Malhotra MD) Pre-eclampsia in third trimester Foot fracture (~2017) Surgical History (Updated 05/13/24 @ 10:37 by Melva Wong, RN) [place] teeth removed (07/18/16) Anesthesia History of Achilles tendon repair (~2014) Family History (Updated 05/13/24 @ 10:43 by Melva Wong, RN) Father Age: 62 Diabetes mellitus Hypertension Mother Age: 60 Mental health problem Brother Mental health problem Cystic fibrosis Substance abuse Sister Age: 31 Pre-eclampsia, severe hemorrhage Family/Other Pneumothorax, spontaneous, tension Cerebral palsy Prematurity Family/Other HIDS (hyperimmunoglobulinemia D with recurrent fever syndrome) Monoallelic mutation of MVK gene Grandmother Diabetes mellitus Von Willebrand disease Social History marital status: number of children: 0 household members: spouse lives independently: Yes caregiver/support person: No housing: house pets and animals: Yes (dog) education level: college (bachelor's degree) occupational status: employed ([employer]) current occupational exposures/hazards: No special jose elias needs: No travel history: recent ([place], [place]) seatbelt use: always helmet use: Yes working smoke detector in home: Yes fire extinguisher in home: Yes carbon monox detector in home: Yes firearms in home: Yes firearms unloaded and locked: Yes do you feel safe at home: Yes second hand exposure: No alcohol intake: former (very rarely when not ) substance use type: does not use during the past year weight has: increased > 10 lbs (muscle weight, very physically active) well-balanced diet: daily or most days daily servings fruits/ve or more times/day caffeine: Yes (aware of 200mg limit; previously 400+mg/day prior to ) Type(s) of exercise: aerobic, bicycling, swimming and weight lifting frequency: daily additional social history: 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 Discussed general exercise recommendations in , travel precautions. Pt does have several trips planned in the next few months, including [place] and , travel recommendations reviewed including compression socks, frequent ambulation, LDASA after 12 wk. Review of Systems Review of Systems ROS: Yes All systems reviewed with the patient and are negative except as otherwise documented Objective Labs 11/27/24 09:30 11/27/24 09:30 Labs: Laboratory Results - last 24 hr 11/27/24 09:30 WBC 12.1 H RBC 3.95 L Hgb 12.0 Hct 34.9 L MCV 88.3 MCH 30.3 MCHC 34.3 RDW 12.3 Plt Count 194 Neut % (Auto) 83.6 H Lymph % (Auto) 10.3 L [place] % (Auto) 4.9 Eos % (Auto) 0.7 L Baso % (Auto) 0.5 Neut # (Auto) 14634 H Lymph # (Auto) 1200 [place] # (Auto) 600 Eos # (Auto) 100 Baso # (Auto) 100 Sodium 135 L Potassium 3.4 Chloride 107 Carbon Dioxide 18 L BUN 4 L Creatinine 0.39 L Estimated GFR > 60 BUN/Creatinine Ratio 10.3 Glucose 125 H Uric Acid 3.9 Calcium 9.3 Total Bilirubin 0.3 AST 29 ALT 32 Alkaline Phosphatase 103 Total Protein 6.5 Albumin 3.5 Globulin 3.0 Albumin/Globulin Ratio 1.2 Evaluation Evaluation Baseline heart rate: 140 Variability: Moderate (11-25) monitor accelerations: Present Monitor Decelerations: Absent Category of Tracing: Reactive Status: Category l Diagnosis, Plan/Disposition Plan/Disposition Plan: PIH labs wnl strict precautions f/u as scheduled OB Disposition: home
== END 2024-11-27 10:50 | disposition home or self-care (01) ==
LOC: LABOR 09:42 → OB 13:56
PROVIDERS: Referring Provider Obstetrics & Gynecology; Visit Provider Obstetrics & Gynecology
DX: O14.03 Mild to moderate pre-eclampsia, third trimester (principal); Z3A.33 33 weeks gestation of pregnancy
CPT/HCPCS: 36415; 59025; 80053; 84550; 85025; G0378; G0379

== ENCOUNTER 2024-12-01 09:17 | Outpatient (CLI) | payer OTHER, SELFPAY ==
--- NOTE | 2024-12-01 09:36 | P.TNLD_ITS ---
Visit Information Visit Information Date of evaluation: 12/01/24 Primary OB Provider: Eliane Malhotra On-call OB Provider: Mahogany Fitch Reason for Evaluation: Yes non-stress test Comments/Additional reasons for admission: 34w2d, preE without severe features, weekly NST/PIH labs Vital Signs Vital Signs: maternal VSS, all values <140 SBP, <90 systolic PFSH Medical History (Updated 10/30/24 @ 17:05 by Eliane Malhotra MD) Pre-eclampsia in third trimester Foot fracture (~2017) Surgical History (Updated 05/13/24 @ 10:37 by Melva Wong, RN) [place] teeth removed (07/18/16) Anesthesia History of Achilles tendon repair (~2014) Family History (Updated 05/13/24 @ 10:43 by Melva Wong, RN) Father Age: 62 Diabetes mellitus Hypertension Mother Age: 60 Mental health problem Brother Mental health problem Cystic fibrosis Substance abuse Sister Age: 31 Pre-eclampsia, severe hemorrhage Family/Other Pneumothorax, spontaneous, tension Cerebral palsy Prematurity Family/Other HIDS (hyperimmunoglobulinemia D with recurrent fever syndrome) Monoallelic mutation of MVK gene Grandmother Diabetes mellitus Von Willebrand disease Social History marital status: number of children: 0 household members: spouse lives independently: Yes caregiver/support person: No housing: house pets and animals: Yes (dog) education level: college (bachelor's degree) occupational status: employed () current occupational exposures/hazards: No special jose elias needs: No travel history: recent ([place], [place]) seatbelt use: always helmet use: Yes working smoke detector in home: Yes fire extinguisher in home: Yes carbon monox detector in home: Yes firearms in home: Yes firearms unloaded and locked: Yes do you feel safe at home: Yes second hand exposure: No alcohol intake: former (very rarely when not ) substance use type: does not use during the past year weight has: increased > 10 lbs (muscle weight, very physically active) well-balanced diet: daily or most days daily servings fruits/ve or more times/day caffeine: Yes (aware of 200mg limit; previously 400+mg/day prior to ) Type(s) of exercise: aerobic, bicycling, swimming and weight lifting frequency: daily additional social history: 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 Discussed general exercise recommendations in , travel precautions. Pt does have several trips planned in the next few months, including [place] and , travel recommendations reviewed including compression socks, frequent ambulation, LDASA after 12 wk. Review of Systems Review of Systems ROS: Yes All systems reviewed with the patient and are negative except as otherwise documented Objective Labs 12/01/24 09:49 12/01/24 09:49 Evaluation Evaluation Baseline heart rate: 140 Variability: Moderate (11-25) monitor accelerations: Present Monitor Decelerations: Absent Category of Tracing: Reactive Status: Category l Diagnosis, Plan/Disposition Plan/Disposition Plan: strict interval precautions continue surveillance as scheduled strict interval precautions OB Disposition: home
[2024-12-01 10:18] LABS: Add Manual Diff / Slide Review NO; Basophils Absolute Auto 100 /uL (0-100); Basophils Percent Auto 0.5 % (0-2); Eosinophils Absolute Auto 100 /uL (0-450); Eosinophils Percent Auto 0.6 % (2-4); Hematocrit 32.7 % (36-46); Lymphocytes Absolute Auto 1100 /uL (1100-4500); Lymphocytes Percent Auto 9.5 % (25-40); Mean Corpuscular HGB Conc 33.8 % (30-36); Mean Corpuscular Hemoglobin 29.8 PG (26-34); Mean Corpuscular Volume 88.3 fL (80-100); Monocytes Absolute Auto 700 /uL (0-900); Monocytes Percent Auto 6.1 % (3-14); Neutrophils Absolute Auto 9400 /uL (1500-7000); Neutrophils Percent Auto 83.3 % (50-75); Platelet Count 184 X10^3/uL (150-400); Red Cell Distribution Width 12.7 % (11.6-14.8); White Blood Cell Count 11.3 X10^3/uL (4.5-11.0)
[2024-12-01 10:35] LABS: Alanine Aminotransferase 22 IU/L (<35); Albumin 3.5 g/dL (3.5-5.0); Albumin Globulin Ratio 1.3 (1.0-2.8); Alkaline Phosphatase 99 U/L (38-126); Aspartate Aminotransferase 26 IU/L (14-36); BUN Creatinine Ratio 15.2 (6-22); Bilirubin Total 0.3 mg/dL (0.2-1.3); Blood Urea Nitrogen 7 mg/dL (7-17); Calcium 8.9 mg/dL (8.4-10.2); Carbon Dioxide 19 mmol/L (22-32); Chloride 106 mmol/L (98-107); Estimated Glomerular Filt Rate > 60 mL/min (>60); Globulin 2.7 g/dL (1.7-4.1); Glucose 90 mg/dL (70-99); HEMOLYSIS < 15 (0-50); Potassium 3.6 mmol/L (3.4-5.1); Sodium 133 mmol/L (137-145); Total Protein 6.2 g/dL (6.3-8.2)
[2024-12-01 10:59] LABS: Uric Acid 3.3 mg/dL (2.5-6.2)
== END 2024-12-01 10:58 | disposition home or self-care (01) ==
LOC: LABOR 10:00 → OB 17:20
PROVIDERS: Referring Provider Obstetrics & Gynecology; Visit Provider Obstetrics & Gynecology
DX: O14.03 Mild to moderate pre-eclampsia, third trimester (principal); Z3A.34 34 weeks gestation of pregnancy
CPT/HCPCS: 36415; 59025; 80053; 84550; 85025; G0378; G0379

== ENCOUNTER 2024-12-04 08:50 | Outpatient (CLI) | payer OTHER, SELFPAY ==
--- NOTE | 2024-12-04 09:50 | P.TNLD_ITS ---
Visit Information Visit Information Date of evaluation: 12/04/24 Primary OB Provider: Eliane Malhotra On-call OB Provider: Eliane Malhotra Reason for Evaluation: Yes non-stress test Comments/Additional reasons for admission: preE without severe features labetalol 200mg BID PFSH Medical History (Updated 01/11/25 @ 13:34 by Nelil Dennison DO) depression exam Pre-eclampsia in third trimester Foot fracture (~2017) Surgical History (Updated 05/13/24 @ 10:37 by Melva Wong RN) [place] teeth removed (07/18/16) Anesthesia History of Achilles tendon repair (~2014) Family History (Updated 05/13/24 @ 10:43 by Melva Wong RN) Father Age: 63 Diabetes mellitus Hypertension Mother Age: 60 Mental health problem Brother Mental health problem Cystic fibrosis Substance abuse Sister Age: 32 Pre-eclampsia, severe hemorrhage Family/Other Pneumothorax, spontaneous, tension Cerebral palsy Prematurity Family/Other HIDS (hyperimmunoglobulinemia D with recurrent fever syndrome) Monoallelic mutation of MVK gene Grandmother Diabetes mellitus Von Willebrand disease Social History marital status: number of children: 0 household members: spouse and children lives independently: Yes caregiver/support person: No housing: house pets and animals: Yes (dog) education level: college occupational status: employed current occupational exposures/hazards: No special jose elias needs: No travel history: recent seatbelt use: always helmet use: Yes working smoke detector in home: Yes fire extinguisher in home: Yes carbon monox detector in home: Yes firearms in home: Yes firearms unloaded and locked: Yes do you feel safe at home: Yes second hand exposure: No alcohol intake: former substance use type: does not use during the past year weight has: increased > 10 lbs well-balanced diet: daily or most days daily servings fruits/ve or more times/day caffeine: Yes (aware of 200mg limit; previously 400+mg/day prior to ) Type(s) of exercise: aerobic, bicycling, swimming and weight lifting frequency: daily additional social history: 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 Discussed general exercise recommendations in , travel precautions. Pt does have several trips planned in the next few months, including [place] and [place], travel recommendations reviewed including compression socks, frequent ambulation, LDASA after 12 wk. Exam Vital Signs (past 8 hours): maternal VSS/afebrile, wnl without mild or severe range BP, reviewed in OBIX Objective Labs 12/04/24 09:42 12/04/24 09:42 Evaluation Evaluation Baseline heart rate: 140 Variability: Moderate (11-25) monitor accelerations: Present Monitor Decelerations: Absent Category of Tracing: Reactive Status: Category l Diagnosis, Plan/Disposition Plan/Disposition Plan: preE without severe features continue twice weekly NST as scheduled, once weekly PIH labs strict precautions
[2024-12-04 09:54] LABS: Add Manual Diff / Slide Review NO; Basophils Absolute Auto 0 /uL (0-100); Basophils Percent Auto 0.3 % (0-2); Eosinophils Absolute Auto 0 /uL (0-450); Eosinophils Percent Auto 0.4 % (2-4); Hematocrit 33.1 % (36-46); Hemoglobin 11.2 g/dL (12.0-16.0); Lymphocytes Absolute Auto 900 /uL (1100-4500); Lymphocytes Percent Auto 7.7 % (25-40); Mean Corpuscular HGB Conc 33.7 % (30-36); Mean Corpuscular Hemoglobin 29.7 PG (26-34); Mean Corpuscular Volume 88.2 fL (80-100); Monocytes Absolute Auto 700 /uL (0-900); Monocytes Percent Auto 5.7 % (3-14); Neutrophils Absolute Auto 9900 /uL (1500-7000); Neutrophils Percent Auto 85.9 % (50-75); Platelet Count 181 X10^3/uL (150-400); Red Blood Cell Count 3.76 X10^6/uL (4.0-5.2); Red Cell Distribution Width 12.8 % (11.6-14.8); White Blood Cell Count 11.6 X10^3/uL (4.5-11.0)
[2024-12-04 10:10] LABS: Alanine Aminotransferase 22 IU/L (<35); Albumin 3.3 g/dL (3.5-5.0); Albumin Globulin Ratio 1.1 (1.0-2.8); Alkaline Phosphatase 92 U/L (38-126); Aspartate Aminotransferase 24 IU/L (14-36); BUN Creatinine Ratio 12.8 (6-22); Bilirubin Total 0.3 mg/dL (0.2-1.3); Blood Urea Nitrogen 6 mg/dL (7-17); Calcium 9.1 mg/dL (8.4-10.2); Carbon Dioxide 19 mmol/L (22-32); Chloride 106 mmol/L (98-107); Estimated Glomerular Filt Rate > 60 mL/min (>60); Globulin 2.9 g/dL (1.7-4.1); Glucose 103 mg/dL (70-99); HEMOLYSIS < 15 (0-50); Potassium 3.5 mmol/L (3.4-5.1); Sodium 133 mmol/L (137-145); Total Protein 6.2 g/dL (6.3-8.2); Uric Acid 3.4 mg/dL (2.5-6.2)
== END 2024-12-04 09:53 | disposition home or self-care (01) ==
LOC: OB 12:17
PROVIDERS: Referring Provider Obstetrics & Gynecology; Visit Provider Obstetrics & Gynecology
DX: O14.03 Mild to moderate pre-eclampsia, third trimester (principal); Z3A.34 34 weeks gestation of pregnancy
CPT/HCPCS: 36415; 59025; 80053; 84550; 85025; G0378; G0379

== ENCOUNTER 2024-12-08 09:04 | Outpatient (CLI) | payer OTHER, SELFPAY ==
[2024-12-08 09:49] LABS: Add Manual Diff / Slide Review NO; Basophils Absolute Auto 0 /uL (0-100); Basophils Percent Auto 0.4 % (0-2); Eosinophils Absolute Auto 100 /uL (0-450); Eosinophils Percent Auto 0.5 % (2-4); Hematocrit 32.2 % (36-46); Lymphocytes Absolute Auto 1000 /uL (1100-4500); Lymphocytes Percent Auto 8.7 % (25-40); Mean Corpuscular HGB Conc 34.2 % (30-36); Mean Corpuscular Hemoglobin 30.3 PG (26-34); Mean Corpuscular Volume 88.6 fL (80-100); Monocytes Absolute Auto 700 /uL (0-900); Monocytes Percent Auto 6.4 % (3-14); Neutrophils Absolute Auto 9500 /uL (1500-7000); Platelet Count 167 X10^3/uL (150-400); Red Blood Cell Count 3.64 X10^6/uL (4.0-5.2); White Blood Cell Count 11.3 X10^3/uL (4.5-11.0)
[2024-12-08 10:03] LABS: Alanine Aminotransferase 19 IU/L (<35); Albumin 3.4 g/dL (3.5-5.0); Albumin Globulin Ratio 1.2 (1.0-2.8); Alkaline Phosphatase 97 U/L (38-126); Aspartate Aminotransferase 25 IU/L (14-36); BUN Creatinine Ratio 13.7 (6-22); Bilirubin Total 0.3 mg/dL (0.2-1.3); Blood Urea Nitrogen 7 mg/dL (7-17); Calcium 9.4 mg/dL (8.4-10.2); Carbon Dioxide 19 mmol/L (22-32); Chloride 106 mmol/L (98-107); Estimated Glomerular Filt Rate > 60 mL/min (>60); Globulin 2.9 g/dL (1.7-4.1); Glucose 89 mg/dL (70-99); HEMOLYSIS < 15 (0-50); Potassium 3.7 mmol/L (3.4-5.1); Sodium 134 mmol/L (137-145); Total Protein 6.3 g/dL (6.3-8.2); Uric Acid 3.6 mg/dL (2.5-6.2)
== END 2024-12-08 09:42 | disposition home or self-care (01) ==
LOC: LABOR 09:31 → OB 10:48
PROVIDERS: Referring Provider Obstetrics & Gynecology; Visit Provider Obstetrics & Gynecology
DX: O14.93 Unspecified pre-eclampsia, third trimester (principal); Z3A.35 35 weeks gestation of pregnancy
CPT/HCPCS: 36415; 59025; 80053; 84550; 85025; G0378; G0379

== ENCOUNTER 2024-12-11 08:53 | Observation (INO) | payer OTHER, SELFPAY ==
[2024-12-11 10:04] LABS: Add Manual Diff / Slide Review NO; Basophils Absolute Auto 100 /uL (0-100); Basophils Percent Auto 0.6 % (0-2); Eosinophils Absolute Auto 100 /uL (0-450); Eosinophils Percent Auto 0.9 % (2-4); Hematocrit 31.4 % (36-46); Lymphocytes Absolute Auto 1000 /uL (1100-4500); Lymphocytes Percent Auto 8.9 % (25-40); Mean Corpuscular HGB Conc 35.1 % (30-36); Mean Corpuscular Hemoglobin 30.4 PG (26-34); Mean Corpuscular Volume 86.7 fL (80-100); Monocytes Absolute Auto 700 /uL (0-900); Monocytes Percent Auto 6.6 % (3-14); Neutrophils Absolute Auto 8800 /uL (1500-7000); Platelet Count 172 X10^3/uL (150-400); Red Blood Cell Count 3.62 X10^6/uL (4.0-5.2); Red Cell Distribution Width 13.2 % (11.6-14.8); White Blood Cell Count 10.7 X10^3/uL (4.5-11.0)
[2024-12-11 10:30] LABS: Alanine Aminotransferase 19 IU/L (<35); Albumin 3.3 g/dL (3.5-5.0); Albumin Globulin Ratio 1.3 (1.0-2.8); Alkaline Phosphatase 94 U/L (38-126); Aspartate Aminotransferase 27 IU/L (14-36); Bilirubin Total 0.4 mg/dL (0.2-1.3); Blood Urea Nitrogen 5 mg/dL (7-17); Calcium 9.6 mg/dL (8.4-10.2); Carbon Dioxide 19 mmol/L (22-32); Chloride 107 mmol/L (98-107); Estimated Glomerular Filt Rate > 60 mL/min (>60); Globulin 2.6 g/dL (1.7-4.1); Glucose 114 mg/dL (70-99); HEMOLYSIS 37 (0-50); Potassium 3.8 mmol/L (3.4-5.1); Sodium 135 mmol/L (137-145); Total Protein 5.9 g/dL (6.3-8.2); Uric Acid 4.5 mg/dL (2.5-6.2)
[2024-12-11] MEDS: BUTALB/APAP/CAFFEINE 50/325/40 TABLET 1 EACH PO (11:06)
== END 2024-12-11 12:10 | disposition home or self-care (01) ==
PROVIDERS: Admitting Provider Obstetrics & Gynecology; Referring Provider Obstetrics & Gynecology; Visit Provider Obstetrics & Gynecology
DX: O14.93 Unspecified pre-eclampsia, third trimester (principal); Z3A.35 35 weeks gestation of pregnancy
CPT/HCPCS: 36415; 59025; 80053; 84550; 85025; G0378; G0379

== ENCOUNTER 2024-12-19 16:20 | Emergency (ER) | payer OTHER, SELFPAY ==
[2024-12-19] VITALS (25 sets, daily range): BP systolic 117–150; BP diastolic 75–100; PULSE 72–101; RESP 13–36; TEMP 36.9; O2SAT 96–99; BMI 34.4
--- NOTE | 2024-12-19 16:32 | DI.RAD.S_ITS ---
PROCEDURE: XR ANKLE RT MIN 3V INDICATIONS: fall, ankle pain TECHNIQUE: 3 views of the ankle were acquired. COMPARISON: None. FINDINGS: Bones: There is a trimalleolar fracture with mild asymmetry of the mortise joint. There is 8 mm of lateral displacement of the talar dome and medial malleolar fragment relative to the tibial plafond. No suspicious bony lesions. Soft tissues: No tibiotalar joint effusion. Achilles tendon appears normal. Soft tissue edema about the ankle is present. IMPRESSION: Trimalleolar fracture/dislocation. Dictated by: Eliane Huff M.D. on 12/19/2024 at 16:48 Approved by: Eliane Huff M.D. on 12/19/2024 at 16:51
--- NOTE | 2024-12-19 16:57 | ED.LOWEXIN ---
HPI - Extremity Injury (Lower) <Kellie Carpenter PA-C - Last Filed: 12/19/24 18:56> General Chief Complaint: Extremity Injury, Lower Stated Complaint: rt ankle pain, 1week , fell Time Seen by Provider: 12/19/24 16:56 Source: patient Mode of arrival: Wheelchair History of Present Illness HPI Narrative: Ms. Suarez is a pleasant 29-year-old female, currently 1 week spontaneous vaginal delivery at 35 weeks 5 days due to preeclampsia now on labetalol 200 mg b.i.d. who presents to the emergency department for right ankle injury after a fall that occurred prior to arrival. She does have a history of right Achilles tendon repair. Primary OB Dr. Malhotra. Patient tripped and fell in a parking lot while holding her baby, she was walking in your curb when she stepped off the curb. She landed on her behind because she was holding the baby on her chest. She is now having right ankle pain and swelling. She denies any head trauma, LOC, neck pain, back pain, upper extremity pain or other injuries. She was evaluated by database development project manager at the scene and did have an elevated blood pressure reading however it is now normal. She is able to wiggle her toes and has no numbness tingling or weakness. Related Data Home Medications ?Medication ?Instructions ?Recorded ?Confirmed vitamin-ferrous sulfate See Rx Instructions .Route .COMPLEX 05/13/24 12/08/24 27 mg iron-folic acid 0.8 mg tablet doxylamine succinate 25 mg tablet 25 mg PO BEDTIME PRN md order 06/02/24 12/08/24 (Unisom (doxylamine)) pyridoxine (vitamin B6) 100 mg 100 mg PO DAILY 06/02/24 12/08/24 tablet Previous Rx's ?Medication ?Instructions ?Recorded nifedipine 30 mg tablet,extended 30 mg PO DAILY #30 tabs 11/03/24 release Allergies Allergy/AdvReac Type Severity Reaction Status Date / Time Penicillins Allergy Mild Rash Verified 12/19/24 16:26 Review of Systems <Kellie Carpenter PA-C - Last Filed: 12/19/24 18:56> Review of Systems ROS Unobtainable: All systems reviewed & are unremarkable except as noted in HPI and below Patient History <Kellie Carpenter PA-C - Last Filed: 12/19/24 18:56> Medical History (Updated 12/19/24 @ 18:30 by Kellie Carpenter PA-C) Pre-eclampsia in third trimester Foot fracture (~2017) Surgical History (Updated 05/13/24 @ 10:37 by Melva Wong, PO) [place] teeth removed (07/18/16) Anesthesia History of Achilles tendon repair (~2014) Family History (Updated 05/13/24 @ 10:43 by Melva Wong, RN) Father Age: 62 Diabetes mellitus Hypertension Mother Age: 60 Mental health problem Brother Mental health problem Cystic fibrosis Substance abuse Sister Age: 31 Pre-eclampsia, severe hemorrhage Family/Other Pneumothorax, spontaneous, tension Cerebral palsy Prematurity Family/Other HIDS (hyperimmunoglobulinemia D with recurrent fever syndrome) Monoallelic mutation of MVK gene Grandmother Diabetes mellitus Von Willebrand disease Social History marital status: number of children: 0 household members: spouse lives independently: Yes caregiver/support person: No housing: house pets and animals: Yes (dog) education level: college (bachelor's degree) occupational status: employed () current occupational exposures/hazards: No special jose elias needs: No travel history: recent ([place], [place]) seatbelt use: always helmet use: Yes working smoke detector in home: Yes fire extinguisher in home: Yes carbon monox detector in home: Yes firearms in home: Yes firearms unloaded and locked: Yes do you feel safe at home: Yes Smoking Status: Never smoker second hand exposure: No alcohol intake: former (very rarely when not ) substance use type: does not use during the past year weight has: increased > 10 lbs (muscle weight, very physically active) well-balanced diet: daily or most days daily servings fruits/ve or more times/day caffeine: Yes (aware of 200mg limit; previously 400+mg/day prior to ) Type(s) of exercise: aerobic, bicycling, swimming and weight lifting frequency: daily additional social history: 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 Discussed general exercise recommendations in , travel precautions. Pt does have several trips planned in the next few months, including [place] and , travel recommendations reviewed including compression socks, frequent ambulation, LDASA after 12 wk. Smoking Status: Never smoker Exam <Kellie Carpenter PA-C - Last Filed: 12/19/24 18:56> Narrative Exam Narrative: GENERAL: 29 year old patient appears stated age. Well-developed patient, in no acute distress. Sitting in wheelchair. HEAD: Atraumatic. Normocephalic. EYES: No scleral icterus. No injection or drainage. NECK: Trachea midline. Cervical ROM intact. CARDIOVASCULAR: Regular rate and rhythm. RESPIRATORY: ?Nonlabored respirations. ?Speaking in clear, full sentences. ?Clear to auscultation. Breath sounds equal bilaterally. No wheezes, rales, or rhonchi. ? EXTREMITIES: Diffuse edema of right ankle with tenderness to palpation of both medial and lateral malleolus. No dorsal midfoot TTP. No phalanx TTP. No anterior driver TTP. No knee TTP or pain with flexion/extension. No palpable Achilles tendon defect. No open wounds. Strong DP pulse and brisk capillary refill. Sensation intact to light touch in the distal foot and toes. No tenderness to palpation of left lower extremity, or bilateral upper extremities. BACK: Nontender. NEURO: AOx3. ?Clear speech. ?Moves all 4 extremities appropriately with the exception of right ankle. SKIN: No rash or erythema of visible areas Initial Vital Signs Initial Vital Signs: Vital Signs Temperature 98.4 F 12/19/24 16:25 Pulse Rate 83 12/19/24 16:25 Respiratory Rate 16 12/19/24 16:25 Blood Pressure 138/87 12/19/24 16:25 Pulse Oximetry 99 12/19/24 16:25 Oxygen Delivery Method Room Air 12/19/24 16:25 <Roddy Castillo DO - Last Filed: 12/19/24 23:43> Initial Vital Signs Initial Vital Signs: Vital Signs Temperature 98.4 F 12/19/24 16:25 Pulse Rate 83 12/19/24 16:25 Respiratory Rate 16 12/19/24 16:25 Blood Pressure 138/87 12/19/24 16:25 Pulse Oximetry 99 12/19/24 16:25 Oxygen Delivery Method Room Air 12/19/24 16:25 Procedures <Roddy Castillo DO - Last Filed: 12/19/24 23:43> Orthopedic Fracture Reduction Fracture #1: Time of procedure: 20:08 Time Out Performed: Yes Side: right Fracture Reduction Location: other (Ankle) Analgesia: procedural sedation Technique: direct manipulation Post Reduction X-rays Demonstrate: acceptable reduction Post-reduction neuro exam: intact Post-reduction vascular exam: intact Splint Applied: Yes Patient Tolerated Procedure: Well Procedural Sedation Time of procedure: 20:08 Consent signed: Yes Time out performed: Yes Indication: fracture/dislocation reduction ASA Class: II Mallampati Airway Classification: Class II Preparation: school lunch monitor applied, pulse oximeter, capnometry used, supplemental O2 applied, reversal agents at bedside, suction/airway equipment at bedside and IV secured Fentanyl dose (mcg): 100 IV Propofol dose (mg): 125 ED Sedation Level: Minimal Patient Tolerated Procedure: Well Complications: none Course <Kellie Carpenter PA-C - Last Filed: 12/19/24 18:56> Orders Ordered: ED Orders 12/19/24 16:32 XR ankle RT min 3V Stat 12/19/24 20:33 XR ankle RT 2V Stat 12/19/24 21:01 XR ankle RT min 3V Stat Discontinued Medications Acetaminophen (Acetaminophen 325 Mg Tablet) 650 mg PO NOW ONE Stop: 12/19/24 17:20 Last Admin: 12/19/24 17:36 Dose: 650 mg Documented By: DONY Fentanyl (Fentanyl 100 Mcg/2 Ml Inj) 100 mcg IV NOW ONE Stop: 12/19/24 20:47 Last Admin: 12/19/24 20:52 Dose: 100 mcg Documented By: ALIREZA Ibuprofen (Ibuprofen 400 Mg Tablet) 600 mg PO NOW ONE Stop: 12/19/24 17:20 Last Admin: 12/19/24 17:35 Dose: 600 mg Documented By: DONY Propofol (Propofol 200 Mg/20 Ml Vial) 100 mg 1 mg/kg (100 mg) IV NOW ONE Stop: 12/19/24 18:29 Last Admin: 12/19/24 20:49 Dose: 100 mg Documented By: ALIREZA Vital Signs Vital signs: Vital Signs - 8 hr 12/19/24 16:25 12/19/24 18:09 12/19/24 19:55 Temperature 98.4 F Pulse Rate 83 101 H Respiratory Rate 16 20 Blood Pressure 138/87 150/98 H Pulse Oximetry 99 98 97 Oxygen Delivery Method Room Air Room Air Oxygen Flow Rate 12/19/24 19:56 12/19/24 19:56 12/19/24 20:00 Temperature Pulse Rate 92 H Respiratory Rate 18 Blood Pressure 137/89 143/100 H Pulse Oximetry 96 Oxygen Delivery Method Room Air Oxygen Flow Rate 12/19/24 20:00 12/19/24 20:01 12/19/24 20:01 Temperature Pulse Rate 96 H 89 Respiratory Rate Blood Pressure 148/87 H Pulse Oximetry 97 98 Oxygen Delivery Method Oxygen Flow Rate 12/19/24 20:20 12/19/24 20:24 12/19/24 20:24 Temperature Pulse Rate 88 95 H Respiratory Rate 22 25 H Blood Pressure 150/91 H Pulse Oximetry 98 98 Oxygen Delivery Method Oxygen Flow Rate 2 12/19/24 20:25 12/19/24 20:28 12/19/24 20:28 Temperature Pulse Rate 98 H 93 H Respiratory Rate 17 20 Blood Pressure 146/94 H Pulse Oximetry 99 99 Oxygen Delivery Method Oxygen Flow Rate 2 2 12/19/24 20:30 12/19/24 20:32 12/19/24 20:32 Temperature Pulse Rate 90 85 Respiratory Rate 17 15 Blood Pressure 140/75 Pulse Oximetry 99 97 Oxygen Delivery Method Oxygen Flow Rate 2 2 12/19/24 20:35 12/19/24 20:36 12/19/24 20:36 Temperature Pulse Rate 80 78 Respiratory Rate 22 23 Blood Pressure 141/79 H Pulse Oximetry 97 97 Oxygen Delivery Method Oxygen Flow Rate 2 2 12/19/24 20:40 12/19/24 20:40 12/19/24 20:44 Temperature Pulse Rate 79 Respiratory Rate 16 Blood Pressure 139/79 142/80 H Pulse Oximetry 98 Oxygen Delivery Method Oxygen Flow Rate 2 12/19/24 20:44 12/19/24 20:45 12/19/24 20:48 Temperature Pulse Rate 78 77 Respiratory Rate 17 23 Blood Pressure 150/89 H Pulse Oximetry 97 98 Oxygen Delivery Method Oxygen Flow Rate 25 2 12/19/24 20:48 12/19/24 20:50 12/19/24 20:55 Temperature Pulse Rate 79 83 76 Respiratory Rate 17 36 H 20 Blood Pressure Pulse Oximetry 98 98 99 Oxygen Delivery Method Oxygen Flow Rate 2 2 12/19/24 20:56 12/19/24 20:56 12/19/24 21:00 Temperature Pulse Rate 77 77 Respiratory Rate 24 24 Blood Pressure 149/88 H Pulse Oximetry 99 97 Oxygen Delivery Method Room Air Oxygen Flow Rate 12/19/24 21:00 12/19/24 21:15 12/19/24 21:15 Temperature Pulse Rate 72 Respiratory Rate 21 Blood Pressure 147/90 H 137/86 Pulse Oximetry 98 Oxygen Delivery Method Room Air Oxygen Flow Rate 12/19/24 21:30 12/19/24 21:30 12/19/24 21:45 Temperature Pulse Rate 85 76 Respiratory Rate 13 22 Blood Pressure 117/82 Pulse Oximetry 99 99 Oxygen Delivery Method Room Air Room Air Oxygen Flow Rate 12/19/24 21:45 Temperature Pulse Rate Respiratory Rate Blood Pressure 140/79 Pulse Oximetry Oxygen Delivery Method Oxygen Flow Rate <Roddy Castillo, DO - Last Filed: 12/19/24 23:43> Orders Ordered: ED Orders 12/19/24 16:32 XR ankle RT min 3V Stat 12/19/24 20:33 XR ankle RT 2V Stat 12/19/24 21:01 XR ankle RT min 3V Stat Discontinued Medications Acetaminophen (Acetaminophen 325 Mg Tablet) 650 mg PO NOW ONE Stop: 12/19/24 17:20 Last Admin: 12/19/24 17:36 Dose: 650 mg Documented By: DONY Fentanyl (Fentanyl 100 Mcg/2 Ml Inj) 100 mcg IV NOW ONE Stop: 12/19/24 20:47 Last Admin: 12/19/24 20:52 Dose: 100 mcg Documented By: ALIREZA Ibuprofen (Ibuprofen 400 Mg Tablet) 600 mg PO NOW ONE Stop: 12/19/24 17:20 Last Admin: 12/19/24 17:35 Dose: 600 mg Documented By: DONY Propofol (Propofol 200 Mg/20 Ml Vial) 100 mg 1 mg/kg (100 mg) IV NOW ONE Stop: 12/19/24 18:29 Last Admin: 12/19/24 20:49 Dose: 100 mg Documented By: ALIREZA Vital Signs Vital signs: Vital Signs - 8 hr 12/19/24 16:25 12/19/24 18:09 12/19/24 19:55 Temperature 98.4 F Pulse Rate 83 101 H Respiratory Rate 16 20 Blood Pressure 138/87 150/98 H Pulse Oximetry 99 98 97 Oxygen Delivery Method Room Air Room Air Oxygen Flow Rate 12/19/24 19:56 12/19/24 19:56 12/19/24 20:00 Temperature Pulse Rate 92 H Respiratory Rate 18 Blood Pressure 137/89 143/100 H Pulse Oximetry 96 Oxygen Delivery Method Room Air Oxygen Flow Rate 12/19/24 20:00 12/19/24 20:01 12/19/24 20:01 Temperature Pulse Rate 96 H 89 Respiratory Rate Blood Pressure 148/87 H Pulse Oximetry 97 98 Oxygen Delivery Method Oxygen Flow Rate 12/19/24 20:20 12/19/24 20:24 12/19/24 20:24 Temperature Pulse Rate 88 95 H Respiratory Rate 22 25 H Blood Pressure 150/91 H Pulse Oximetry 98 98 Oxygen Delivery Method Oxygen Flow Rate 2 12/19/24 20:25 12/19/24 20:28 12/19/24 20:28 Temperature Pulse Rate 98 H 93 H Respiratory Rate 17 20 Blood Pressure 146/94 H Pulse Oximetry 99 99 Oxygen Delivery Method Oxygen Flow Rate 2 2 12/19/24 20:30 12/19/24 20:32 12/19/24 20:32 Temperature Pulse Rate 90 85 Respiratory Rate 17 15 Blood Pressure 140/75 Pulse Oximetry 99 97 Oxygen Delivery Method Oxygen Flow Rate 2 2 12/19/24 20:35 12/19/24 20:36 12/19/24 20:36 Temperature Pulse Rate 80 78 Respiratory Rate 22 23 Blood Pressure 141/79 H Pulse Oximetry 97 97 Oxygen Delivery Method Oxygen Flow Rate 2 2 12/19/24 20:40 12/19/24 20:40 12/19/24 20:44 Temperature Pulse Rate 79 Respiratory Rate 16 Blood Pressure 139/79 142/80 H Pulse Oximetry 98 Oxygen Delivery Method Oxygen Flow Rate 2 12/19/24 20:44 12/19/24 20:45 12/19/24 20:48 Temperature Pulse Rate 78 77 Respiratory Rate 17 23 Blood Pressure 150/89 H Pulse Oximetry 97 98 Oxygen Delivery Method Oxygen Flow Rate 25 2 12/19/24 20:48 12/19/24 20:50 12/19/24 20:55 Temperature Pulse Rate 79 83 76 Respiratory Rate 17 36 H 20 Blood Pressure Pulse Oximetry 98 98 99 Oxygen Delivery Method Oxygen Flow Rate 2 2 12/19/24 20:56 12/19/24 20:56 12/19/24 21:00 Temperature Pulse Rate 77 77 Respiratory Rate 24 24 Blood Pressure 149/88 H Pulse Oximetry 99 97 Oxygen Delivery Method Room Air Oxygen Flow Rate 12/19/24 21:00 12/19/24 21:15 12/19/24 21:15 Temperature Pulse Rate 72 Respiratory Rate 21 Blood Pressure 147/90 H 137/86 Pulse Oximetry 98 Oxygen Delivery Method Room Air Oxygen Flow Rate 12/19/24 21:30 12/19/24 21:30 12/19/24 21:45 Temperature Pulse Rate 85 76 Respiratory Rate 13 22 Blood Pressure 117/82 Pulse Oximetry 99 99 Oxygen Delivery Method Room Air Room Air Oxygen Flow Rate 12/19/24 21:45 Temperature Pulse Rate Respiratory Rate Blood Pressure 140/79 Pulse Oximetry Oxygen Delivery Method Oxygen Flow Rate MDM - Extremity Injury (Lower) <Kellie Carpenter PA-C - Last Filed: 12/19/24 18:56> Medical Records Attestation: I reviewed the patient's medical records. Lab Data Labs: Point of Care Testing Test Results Not applicable Imaging Data Right Ankle X-Ray: Radiologist's Impression: PROCEDURE: XR ANKLE RT MIN 3V INDICATIONS: fall, ankle pain TECHNIQUE: 3 views of the ankle were acquired. COMPARISON: None. FINDINGS: Bones: There is a trimalleolar fracture with mild asymmetry of the mortise joint. There is 8 mm of lateral displacement of the talar dome and medial malleolar fragment relative to the tibial plafond. No suspicious bony lesions. Soft tissues: No tibiotalar joint effusion. Achilles tendon appears normal. Soft tissue edema about the ankle is present. IMPRESSION: Trimalleolar fracture/dislocation. Dictated by: Eliane Huff M.D. on 12/19/2024 at 16:48 Approved by: Eliane Huff M.D. on 12/19/2024 at 16:51 [facility] Narrative Medical decision making narrative: 29-year-old female, currently 1 week spontaneous vaginal delivery at 35 weeks 5 days due to preeclampsia now on labetalol 200 mg b.i.d. who presents to the emergency department for right ankle injury after a fall that occurred prior to arrival. Differential diagnosis includes but is not limited to right ankle sprain, strain, fracture, dislocation, etc. On exam patient is in no acute distress, nontoxic-appearing, all vital signs within normal limits. She has edema and tenderness of right ankle with no deformities or open wounds. She is neurovascularly intact. We will obtain a x-ray right ankle, we will treat with ibuprofen and Tylenol she would like to avoid opiates at this time. Patient has been prescribed labetalol 200 mg b.i.d., she is due to take this medication at 8:00 p.m. She was told by her OBGYN that if her blood pressure was sustained 130 systolic or higher that she could also start taking nifedipine 30mg ER that was recently discontinued. 1821: Discussed case with on-call orthopedic surgeon Dr. Mckay. At this time he recommends e.d. reduction, explained that patient needs more lateral reduction with the talus over the tibial plafond. He would then like images sent to him postreduction and patient placed into a well-padded posterior short-leg splint with stirrup. He suspects patient will need a few days for swelling to go down prior to surgical repair. If reduction goes well he would like patient to follow up with the clinic on Saturday. Discussed case with nighttime ED physician Dr. Prieto who will proceed with reduction and follow up with ortho. Patient is aware and agreeable to reduction and transfer of care to Dr. Prieto. She has been NPO besides small sips of water since 1:30pm. <Roddy Castillo DO - Last Filed: 12/19/24 23:43> Lab Data Labs: Point of Care Testing Test Results Not applicable Imaging Data Postreduction x-ray right ankle: Radiologist's Impression: [address] [address] XRay Report Signed Patient: Kellie Suarez V MR#: [id number] : 1995 Acct:[id number] Age/Sex: 29 / F Date of Service: 12/19/24 Loc: ED Accession Number: [id number] Procedure: XR ankle RT 2V Ordering Provider: Roddy Castillo D.O. PROCEDURE: XR ANKLE RT 2V INDICATIONS: Post reduction Rt ankle fx TECHNIQUE: 3 views of the ankle were acquired. [facility] 12[facility]24, 16:37. FINDINGS AND IMPRESSION: Trimalleolar fracture dislocation of the ankle again seen. Improved alignment seen on frontal view of the ankle mortise, however there is persistent anterior tibiotalar widening and displaced lateral malleolar fragment, best appreciated on lateral view. Fragmented calcaneal enthesopathy. Diffuse soft tissue swelling. MDM Narrative Medical decision making narrative: 29-year-old female, currently 1 week spontaneous vaginal delivery at 35 weeks 5 days due to preeclampsia now on labetalol 200 mg b.i.d. who presents to the emergency department for right ankle injury after a fall that occurred prior to arrival. Differential diagnosis includes but is not limited to right ankle sprain, strain, fracture, dislocation, etc. On exam patient is in no acute distress, nontoxic-appearing, all vital signs within normal limits. She has edema and tenderness of right ankle with no deformities or open wounds. She is neurovascularly intact. We will obtain a x-ray right ankle, we will treat with ibuprofen and Tylenol she would like to avoid opiates at this time. Patient has been prescribed labetalol 200 mg b.i.d., she is due to take this medication at 8:00 p.m. She was told by her OBGYN that if her blood pressure was sustained 130 systolic or higher that she could also start taking nifedipine 30mg ER that was recently discontinued. 1821: Discussed case with on-call orthopedic surgeon Dr. Mckay. At this time he recommends e.d. reduction, explained that patient needs more lateral reduction with the talus over the tibial plafond. He would then like images sent to him postreduction and patient placed into a well-padded posterior short-leg splint with stirrup. He suspects patient will need a few days for swelling to go down prior to surgical repair. If reduction goes well he would like patient to follow up with the clinic on Saturday. Discussed case with nighttime ED physician Dr. Priteo who will proceed with reduction and follow up with ortho. Patient is aware and agreeable to reduction and transfer of care to Dr. Prieto. She has been NPO besides small sips of water since 1:30pm. 1899: Patient was signed out to me by CRYSTAL Hopkins, patient is 1 week history of preeclampsia on labetalol presenting for right ankle pain, x-ray showing trimalleolar fracture, Orthopedic surgery was consulted is requesting reduction splint and most likely outpatient follow up for final surgical fixation, did obtain consent for procedural sedation reduction. 2054: Case was discussed with Dr. Mckay, were reviewed postreduction images states that he agrees with having patient follow up in outpatient setting, states to have her call the clinic on Saturday. Is requesting postreduction splint x-rays order these now 2139: Patient was re-evaluated she is not completely back to baseline, informed her to call Orthopedic surgery on Saturday they are waiting her call, she was given strict return precautions she verbalized understanding of this she will be sent home with crutches she understands and agrees to being discharged home with outpatient follow up Discharge Plan Departure Patient Disposition: Home Clinical Impression: Closed trimalleolar fracture Qualifiers: Encounter type: initial encounter Laterality: right Qualified Code(s): S82.851A - Displaced trimalleolar fracture of right lower leg, initial encounter for closed fracture Instructions: DI for Ankle Fracture Activity Restrictions/Additional Instructions: Dear Lorenzo Erick, Thank you for coming to the emergency department. Today you were evaluated for a right ankle injury. Your x-ray revealed a trimalleolar fracture. You had a reduction performed but need to follow up with orthopedics for surgery. Please use RICE therapy for your pain in addition to ibuprofen/acetaminophen. Rest the painful area. Ice the area of pain/swelling for at least 15 minutes, 4x a day. Compress the area of swelling using a brace, wrap, or splint if applied. Elevate the painful or swollen extremity by supporting it above the level of the heart with pillows when sitting or laying. Please call to schedule an appointment with the orthopedic surgeon thing Saturday morning for further management. Please follow up with your primary care doctor within the next 2-3 days for ER follow-up. (If you do not have a PCP you can call [phone]. ?to schedule an appointment with an [facility] Primary Care Provider) IF YOU DEVELOP ANY NEW OR WORSENING SYMPTOMS, RETURN TO THE ER! Please read the attached instructions, they highlight more specific treatments and interventions for you at home. Thank you for letting me participate in your care, Kellie Carpenter PA-C Prescriptions: No Action Unisom (doxylamine) 25 mg tablet 25 mg PO BEDTIME PRN (Reason: md order) pyridoxine (vitamin B6) 100 mg tablet 100 mg PO DAILY nifedipine 30 mg tablet extended release 30 mg PO DAILY Qty: 30 2RF vit-ferrous sulfat-FA 27 mg iron- 0.8 mg tablet See Rx Instructions .ROUTE .COMPLEX Rx Instructions: per MD order Referrals: Jorden Mckay MD [Physician, Orthopedic Surgery] Referral Note: Right [facility] [Primary Care Provider, Family Practice] Stand Alone Forms: Patient Portal/API
[2024-12-19] MEDS: IBUPROFEN 400 MG TABLET 600 MG PO (17:35)
[2024-12-19] MEDS: ACETAMINOPHEN 325 MG TABLET 650 MG PO (17:36)
--- NOTE | 2024-12-19 20:33 | DI.RAD.S_ITS ---
PROCEDURE: XR ANKLE RT 2V INDICATIONS: Post reduction Rt ankle fx TECHNIQUE: 3 views of the ankle were acquired. COMPARISON: [facility], CR, XR ANKLE RT MIN 3V, 12/19/2024, 16:37. FINDINGS AND IMPRESSION: Trimalleolar fracture dislocation of the ankle again seen. Improved alignment seen on frontal view of the ankle mortise, however there is persistent anterior tibiotalar widening and displaced lateral malleolar fragment, best appreciated on lateral view. Fragmented calcaneal enthesopathy. Diffuse soft tissue swelling. Dictated by: Rich Schmitz M.D. on 12/19/2024 at 21:56 Approved by: Rich Schmitz M.D. on 12/19/2024 at 21:58
[2024-12-19] MEDS: propofoL 200 MG/20 ML VIAL 100 MG IV (20:49)
[2024-12-19] MEDS: fentaNYL 100 MCG/2 ML INJ IV (20:52)
--- NOTE | 2024-12-19 21:01 | DI.RAD.S_ITS ---
PROCEDURE: XR ANKLE RT MIN 3V INDICATIONS: post splint xray for Ortho TECHNIQUE: 3 views of the ankle were acquired. COMPARISON: [facility], CR, XR ANKLE RT 2V, 12/19/2024, 20:27. [facility], CR, XR ANKLE RT MIN 3V, 12/19/2024, 16:37. FINDINGS AND IMPRESSION: Trimalleolar fracture dislocation of the ankle again seen. Post splinting radiographs, without significant interval change from recent radiograph, slightly improved alignment compared to 1637 radiographs. Dictated by: Rich Schmitz M.D. on 12/19/2024 at 21:58 Approved by: Rich Schmitz M.D. on 12/19/2024 at 21:59
== END 2024-12-19 22:33 | disposition home or self-care (01) ==
PROVIDERS: Emergency Provider Student in an Organized Health Care Education/Training Program
DX: S82.851A Displaced trimalleolar fracture of right lower leg, initial encounter for closed fracture (principal); W18.30XA Fall on same level, unspecified, initial encounter
CPT/HCPCS: 27818; 73600; 73610; 96374; 99152; 99284; J2704; J3010

== ENCOUNTER → 2024-12-24 13:57 | Outpatient (CLI) | payer OTHER, SELFPAY ==
--- NOTE | 2024-12-24 13:59 | DI.CT.S_ITS ---
PROCEDURE: CT ANKLE RIGHT WITHOUT CON INDICATIONS: trimalleolar ankle fracture right - surgical planning TECHNIQUE: Noncontrast 1-1.5 mm axial sections acquired from above the tibiotalar joint to the bottom of the calcaneus, with coronal and sagittal reformats. For radiation dose reduction, the following was used: automated exposure control, adjustment of mA and/or kV according to patient size. 3D reconstructed volume rendering images were also generated for fracture evaluation. COMPARISON: [facility], CR, XR ANKLE RT MIN 3V, 12/19/2024, 20:58. FINDINGS: Image quality: Excellent. Bones: Comminuted trimalleolar fracture of the distal tibia and fibula. Transverse component is seen at the medial malleolus with approximately 3 mm lateral displacement at the articular surface and up to 5 mm distal displacement along the medial fracture margin with slight rotation. Comminuted posterior malleolar fracture is seen with up to 7 mm gap along the fracture line at the articular surface. Multiple small comminuted fracture fragments are seen throughout the fracture plane. Oblique fracture of the distal fibular metaphysis is seen with mild posterior displacement measuring up to 2 mm, lateral displacement measuring up to 3 mm, and proximal displacement measuring up to 7 mm. The tip of the dominant radial shaft component abuts the lateral talar dome. A smaller comminuted fragment is seen anteriorly with mild distal anterior displacement. 3D reconstructed images better demonstrate the relationship of the fracture fragments. No osteochondral lesion in the talar dome. No additional fracture is seen in the remainder of the foot and ankle. Postsurgical changes are seen at the posterior calcaneus from Achilles tendon repair. Small heterotopic calcifications are seen adjacent to the Achilles insertion. Soft tissues: Soft tissue edema surrounding the ankle and hindfoot as well as at the dorsum of the foot. The posterior tibialis tendon and flexor digitorum longus tendons abut portions of the fracture lines without definite tendon entrapment. The Achilles tendon appears thickened. However, the tendons, ligaments, and articular cartilages are not well evaluated with CT. Visualized musculature is normal in bulk. IMPRESSION: Comminuted mildly displaced trimalleolar fracture of the distal tibia and fibula as described in the body of the report. Approved by: Arnold De La Paz M.D. on 12/24/2024 at 14:38
== END ==
PROVIDERS: Referring Provider Orthopaedic Surgery; Visit Provider Orthopaedic Surgery
DX: S82.851A Displaced trimalleolar fracture of right lower leg, initial encounter for closed fracture (principal); X58.XXXA Exposure to other specified factors, initial encounter
CPT/HCPCS: 73700; 99213

== ENCOUNTER 2024-12-30 09:52 | Day surgery (SDC) | payer OTHER, SELFPAY ==
[2024-12-25 11:18] VITALS: BMI 34.4
--- NOTE | 2024-12-30 | DI.RAD.S_ITS ---
PROCEDURE: XR ANKLE RT MIN 3V INDICATIONS: INTRA OP RT ANKLE ORIF TECHNIQUE: 5 intraoperative fluoroscopic views of the ankle were acquired. COMPARISON: [facility], , XR ANKLE RT MIN 3V, 12/19/2024, 20:58. FINDINGS: Bones: Intraoperative fluoroscopic images shows internal fixation of distal fibular shaft and medial malleolus. IMPRESSION: Fluoro guidance was provided intraoperatively for internal fixation of right ankle performed by ordering physician. Dictated by: Nasir Haney M.D. on 12/30/2024 at 14:33 Approved by: Nasir Haney M.D. on 12/30/2024 at 14:34
--- NOTE | 2024-12-30 | DI.RAD.S_ITS ---
PROCEDURE: XR ANKLE RT MIN 3V INDICATIONS: POST OP RT ANKLE ORIF TECHNIQUE: 2 views of the ankle were acquired. COMPARISON: [facility], CR, XR ANKLE RT MIN 3V, 12/30/2024, 13:53. [facility], CR, XR ANKLE RT MIN 3V, 12/19/2024, 20:58. FINDINGS/IMPRESSION: Interval surgical fusion of the medial malleolus and lateral malleolus. Near anatomic alignment. Ankle mortise is maintained. Dictated by: Joe Roy M.D. on 12/30/2024 at 16:00 Approved by: Joe Roy M.D. on 12/30/2024 at 16:01
[2024-12-30 10:20] VITALS: BP 96/59; PULSE 90; RESP 16; TEMP 36.1; O2SAT 97; BMI 34.4
--- NOTE | 2024-12-30 11:23 | PM.PREOP ---
Pre-operative Note COVID-19 COVID-19 status: Not tested Interval Note History & Physical reviewed/Exam performed by Physician: Yes Changes to H&P: No
[2024-12-30] MEDS: CEFAZOLIN 2 GM/100 ML PREMIX 100 ML IV (12:30)
--- NOTE | 2024-12-30 12:54 | SUR.OPER ---
Supine on padded OR bed, head on pillow, arms secured on padded arm boards at <90 degrees abduction, legs uncrossed, safety belt at waist, tape over blanket over lower LEFT leg, RIGHT leg prepped into field, RIGHT hip bumped, tourniquet applied, surgeon and PA helped with positioning
[2024-12-30] MEDS: BUPIVACAINE 0.25% (PF) VIAL 30 ML INJ (13:01)
[2024-12-30 14:27] VITALS: BP 134/80; PULSE 79; RESP 16; TEMP 37.1; O2SAT 95
[2024-12-30 14:32] VITALS: BP 130/77; PULSE 75; RESP 12; O2SAT 95
[2024-12-30 14:37] VITALS: BP 126/72; PULSE 72; RESP 10; O2SAT 95
[2024-12-30] MEDS: fentaNYL 100 MCG/2 ML INJ IV (14:37)
[2024-12-30] MEDS: DEXAMETHASONE 10 MG/ML VIAL 8 MG IV (14:41)
[2024-12-30 14:42] VITALS: BP 125/73; PULSE 70; RESP 12; TEMP 36.8; O2SAT 94
[2024-12-30] MEDS: HYDROMORPHONE 1 MG INJ IV ×2 (14:44→14:49)
[2024-12-30 14:57] VITALS: BP 134/83; PULSE 92; RESP 13; O2SAT 95
[2024-12-30] MEDS: ONDANSETRON 4 MG/2 ML INJ IV (15:10)
[2024-12-30] MEDS: OXYCODONE IR 5 MG TABLET PO (15:10)
--- NOTE | 2024-12-30 15:42 | P.OP_ITS ---
Operative Date/Time/Diagnoses Date of procedure: 12/30/24 Time of procedure: 12:15 Pre-op diagnosis: Right trimalleolar ankle fracture Post-op diagnosis: same Procedure & Clinicians Procedure: 1. Open reduction internal fixation right trimalleolar ankle fracture 2. Short-leg splint. Same procedure(s) as scheduled: Yes Indications: see preop H&P Surgeon: Nelli Dennison Speech Language Pathologist Prn: Cely Kraft Anesthesia Type: General Operative Notes Findings: Procedure performed: 1) Open reduction internal fixation right trimalleolar ankle fracture 2) short leg splint Surgeon Nelli Ramirez DO Speech Language Pathologist Prn: Ximena Shoemaker PALorenza Indications for surgery please see preoperative H&P Total estimated blood loss 5 cc Tourniquet time 87 minutes at 250 mmHg Implants: 1) [employer] lateral malleolus plate 2) multiple 3.5 and 2.7 screws Procedure in detail: The patient was met in the preoperative holding area her right lower extremity was signed is correct extremity. SHe was taken back to the operating room and placed in supine position. All bony prominences were padded. A well-padded tourniquet was placed her right lower extremity. The patient was prepped and draped in standard sterile fashion. A timeout was performed confirming the correct patient correct extremity initials on the operative site and administration of IV antibiotics. An Esmarch was used to exsanguinate the lower extremity and the tourniquet was inflated to 250 mmHg. A lateral incision was made approximately 8 cm just lateral to the fibula. Dissection was taken down to the fibula fracture the fibula fracture was identified and cleared of debris. A pointed reduction clamp was used to reduce the fracture. A 2.7 lag screw was placed in standard fashion perpendicular to the fracture site this achieved a good reduction. A lateral fibular plate was utilized to fix the fibula and adequate amount of screws were used proximally and distally. An incision was made over the medial malleolus and dissection was taken down to the fracture site.? The fracture was cleared of debris.? The fracture was reduced and k-wires were used to fix the fracture in place.? The K wires were overdrilled and 2 4.0 mm partially cannulated screws were placed. A cotton test and external rotation test were performed and the syndesmosis was intact.? The wound was copiously irrigated and closed in layered fashion with 2-0 vicryl and 3-0 nylon. A sterile dressing was applied consisting of xeroform, plain gauze and an L and U splint. The patient was awoken in stable condition. All counts were correct at the end of the case. Assistants were needed to hold the reduction and obtain fixation, close and splint the patient. Closure Type: primary Specimen(s): none sent Applied: cast(s) and implant(s) Estimated Blood Loss (mL): 5 Tourniquet time (min): 87 Complications: none Post-operative Condition: stable Disposition: PACU Plan for aftercare: Splint and sutures in place x 2 weeks. NWB to RLE F/u in 2 weeks for Suture removal.
== END 2024-12-30 16:07 | disposition home or self-care (01) ==
PROVIDERS: Referring Provider Orthopaedic Surgery; Visit Provider Orthopaedic Surgery
PROC: 0SSF04Z Reposition Right Ankle Joint with Internal Fixation Device, Open Approach (ICD-10-PCS; CPT 27828; principal; 2024-12-30 11:45)
DX: S82.851A Displaced trimalleolar fracture of right lower leg, initial encounter for closed fracture (principal); Z39.1 Encounter for care and examination of lactating mother; W10.1XXA Fall (on)(from) sidewalk curb, initial encounter
CPT/HCPCS: 27828; 73610; 76000; C1713; J0690; J1100; J1171; J2405; J3010